=== PATIENT | male | born 1985 | race American Indian/Alaskan Native ===

== ENCOUNTER 2016-12-15 03:30 | Emergency (ER) | payer BC, OTHER ==
[2016-12-15 03:54] VITALS: BMI 21.2
[2016-12-15 03:56] VITALS: TEMP 98.5
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
[2016-12-15 05:51] VITALS: BP 152/86; PULSE 79; RESP 18; O2SAT 99
== END 2016-12-15 05:50 | disposition home or self-care (01) ==
LOC: ED 03:30
DX: R51 Headache (principal); I10 Essential (primary) hypertension; Z99.2 Dependence on renal dialysis

== ENCOUNTER 2017-04-23 03:26 | Observation (INO) | payer BC, OTHER ==
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
[2017-04-23] MEDS ORDERED: Albuterol-Ipratrop 3 mg / 0.5 (3 ml) UD IH STA (04:05)
[2017-04-23 04:30] LABS: HEMATOCRIT 35.7 % (42.0-52.0); MEAN CELL VOLUME 76.1 fl (80.0-105.0); MEAN CORPUSCULAR HEMOGLOBIN 25.2 pg (25.0-35.0); MEAN CORPUSCULAR HGB CONC 33.1 g/dl (31.0-37.0); PLATELET COUNT 179 10^3/uL (120.0-450.0); RED CELL DISTRIBUTION WIDTH 16.1 % (11.5-14.5); WHITE BLOOD COUNT 9.1 10^3/ul (4.5-11.0)
[2017-04-23 04:38] LABS: INR 1.12 (0.93-1.08); PARTIAL THROMBOPLASTIN TIME 34.1 Seconds (25.1-36.5)
[2017-04-23 04:49] LABS: TROPONIN I 0.01 ng/mL
[2017-04-23 04:54] LABS: ALB/GLOB RATIO 1.3 (1.1-1.8); POTASSIUM 4.9 mmol/L (3.6-5.0)
[2017-04-23 06:54] VITALS: BMI 21.8
--- NOTE | 2017-04-23 07:01 | CP.PCM.HP ---
<Erin Shukla - Last Filed: 04/23/17 06:53> History of Present Illness - History of Present Illness History of Present Illness: Erin Shukla DO PGY1 - Internal Medicine H&P CC: Tired, weak, blood tinged sputum HPI: 31 yo M with PMH of HTN and ESRD on HD ([facility]) for the past two years. Presents complaining of lethargy, malaise, shortness of breath, and blood tinged sputum. His symptoms started Saturday, with fatigue and malaise, after he returned home from work. On Saturday, he missed a session of HD, and his symptoms progressively worsened, to include cough productive of blood tinged sputum, fevers, and chills. He reports compliance with his medications. He reports one sick contact at work. He denies any chest pain, nausea, vomiting, diarrhea, constipation, headache, otalgia, otorrhea, rhinorrhea, facial pain/pressure. 12 point ROS was reviewed and was negative except as in HPI PMH: As above PSH: AVF left arm Soc: Prior smoker, 2-3 PYH; Denies alcohol or illicits FHx: HTN, ESRD on HD All: NKDA PMD: Dr. Cobb Desulphurizer Operator: Dr. Sixto Nolan Pharmacy: [facility] Present on Admission - Present on Admission Any Indicators Present on Admission: No Past Patient History - Past Social History Smoking Status: Never Smoked - CARDIAC Hx Cardiac Disorders: Yes Hx Hypertension: Yes - PULMONARY Hx Respiratory Disorders: No - NEUROLOGICAL Hx Neurological Disorder: No - HEENT Hx HEENT Problems: No - RENAL Hx Chronic Kidney Disease: Yes Hx Dialysis: Yes ([facility], [facility]) - ENDOCRINE/METABOLIC Hx Endocrine Disorders: No - HEMATOLOGICAL/ONCOLOGICAL Hx Blood Disorders: Yes Hx Anemia: Yes - INTEGUMENTARY Hx Dermatological Problems: No - MUSCULOSKELETAL/RHEUMATOLOGICAL Hx Musculoskeletal Disorders: No ([facility]) - GASTROINTESTINAL Hx Gastrointestinal Disorders: No - GENITOURINARY/GYNECOLOGICAL Hx Genitourinary Disorders: No - PSYCHIATRIC Hx Psychophysiologic Disorder: No - SURGICAL HISTORY Hx Arteriovenous Shunt: Yes (left arm) - ANESTHESIA Hx Anesthesia: Yes Meds Allergies/Adverse Reactions: Allergies Allergy/AdvReac Type Severity Reaction Status Date / Time No Known Allergies Allergy Verified 12/15/16 03:54 Physical Exam - Constitutional Appears: Non-toxic, No Acute Distress Additional comments: Lethargic, occasionally tripoding - Head Exam Head Exam: ATRAUMATIC, NORMOCEPHALIC - Eye Exam Eye Exam: EOMI, Normal appearance. absent: Scleral icterus - ENT Exam ENT Exam: Mucous Membranes Moist - Neck Exam Neck exam: Positive for: Normal Inspection. Negative for: Lymphadenopathy - Respiratory Exam Respiratory Exam: Rales (Diffuse, L>R), NORMAL BREATHING PATTERN. absent: Accessory Muscle Use, Rhonchi, Wheezes, Respiratory Distress - Cardiovascular Exam Cardiovascular Exam: Tachycardia, REGULAR RHYTHM, +S1, +S2 - GI/Abdominal Exam GI & Abdominal Exam: Normal Bowel Sounds, Soft. absent: Guarding, Organomegaly , Rebound, Rigid, Tenderness - Extremities Exam Extremities exam: Positive for: pedal edema (3-4+ b/l LE to knees). Negative for: calf tenderness - Neurological Exam Neurological exam: Alert, CN II-XII Intact, Oriented x3 Additional comments: Lethargic, easily arousable - Psychiatric Exam Psychiatric exam: Normal Affect, Normal Mood - Skin Skin Exam: Dry, Intact, Normal Color Results - Vital Signs Recent Vital Signs: Last Vital Signs Temp 98.1 F 04/23/17 03:41 Pulse 91 H 04/23/17 05:41 Resp 16 04/23/17 05:41 BP 144/94 H 04/23/17 05:41 Pulse Ox 95 04/23/17 05:41 - Labs Result Diagrams: 04/23/17 04:10 04/23/17 04:10 Assessment & Plan - Assessment and Plan (Free Text) Assessment: 31 yo M with PMH of HTN and ESRD on HD (MWF) presents complaining of dyspnea, fatigue, malaise, and blood tinged sputum Plan 1. Dyspnea - 2/2 fluid overloaded state 2/2 missed HD - Patient with rales on exam, elevated BNP, CXR with pulmonary vascular congestion, and lower extremity edema - Ordered Lasix 20mg IV once - Consulted nephro for urgent dialysis - HOB>30, O2 by NC to maintain SaO2>90% - Reportedly had echo done previously, which was normal 2. Lethargy - Likely 2/2 uremia - Urgent dialysis today - Neurocheck Q4 3. Blood tinged sputum - H/H stable, no witnessed episodes in ED - Likely 2/2 pulmonary edema - Continue to monitor, recheck CBC with daily labs 4. HTN - Patient takes unknown dose of metoprolol and Norvasc 10mg daily - Resume home norvasc - Start hydralazine 10mg IV Q4 PRN for SBP >170 and DBP >110 5. ESRD on HD M/W/F - Patient missed session on Saturday, now with Cr of 18 - Patient sees Dr. Nolan on outpatient basis; consulted him for urgent HD - Patient reportedly had outpatient workup for his renal failure, including biopsy GI/DVT Ppx Patient seen, discussed, and reviewed with attending <Carlos Mchugh - Last Filed: 04/23/17 20:26> Results - Vital Signs Recent Vital Signs: Last Vital Signs Temp 99.8 F H 04/23/17 17:49 Pulse 110 H 04/23/17 17:57 Resp 20 04/23/17 17:49 BP 142/90 04/23/17 17:49 Pulse Ox 82 L 04/23/17 17:49 - Labs Result Diagrams: 04/23/17 04:10 04/23/17 04:10 Labs: Laboratory Results - last 24 hr 04/23/17 16:15 Lactic Acid 1.2 Attending/Attestation - Attestation I have personally seen and examined this patient.: Yes I have fully participated in the care of the patient.: Yes I have reviewed all pertinent clinical information: Yes
--- NOTE | 2017-04-23 08:33 | RAD ---
HISTORY: sob/hemoptysis COMPARISON: No prior. FINDINGS: LUNGS: Bilateral extensive confluent opacity in the lower of the lung. Likely lower lobe but as there is no silhouetting of the heart border bilaterally. PLEURA: No significant pleural effusion identified, no pneumothorax apparent. CARDIOVASCULAR: There is mild congestive change. OSSEOUS STRUCTURES: No significant abnormalities. VISUALIZED UPPER ABDOMEN: Normal. OTHER FINDINGS: None. IMPRESSION: Bilateral lower lobe opacity. Possible bilateral pneumonia.
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
--- NOTE | 2017-04-23 20:00 | CARD ---
APPROVED REPORT EKG Measurement Heart [id number] [place] [id number] <Conclusion> Normal sinus rhythm Possible Left atrial enlargement Left ventricular hypertrophy Nonspecific ST and T wave abnormality Abnormal ECG
[2017-04-23] MEDS ORDERED: Metoprolol Succinate 50 mg XL Tab PO STA (23:14)
[2017-04-24] MEDS ORDERED: Pantoprazole 40 mg EC Tab PO SCH (06:00)
[2017-04-24] MEDS: Metoprolol Succinate 50 mg XL Tab PO SCH ×2 (07:13→10:23)
[2017-04-24] MEDS ORDERED: Multivitamin Vitamin B Complex (Nephro-Vite) Tab PO SCH (08:00)
--- NOTE | 2017-04-24 10:56 | RAD ---
HISTORY: r/o infiltrate COMPARISON: 04/23/2017 FINDINGS: LUNGS: There is a diffuse bilateral infiltrate. There is also vascular congestion. Infiltrate is slightly worse on the right side. Findings could represent pneumonia or CHF. PLEURA: No significant pleural effusion identified, no pneumothorax apparent. CARDIOVASCULAR: Normal. OSSEOUS STRUCTURES: No significant abnormalities. VISUALIZED UPPER ABDOMEN: Normal. OTHER FINDINGS: None. IMPRESSION: There is a diffuse bilateral infiltrate. There is also vascular congestion. Infiltrate is slightly worse on the right side. Findings could represent pneumonia or CHF.
[2017-04-24 10:57] LABS: BASO # 0.05 K/mm3 (0.0-2.0); BASO % 0.5 % (0.0-3.0); EOS # 0.6 (0.0-0.7); EOS % 6.3 % (1.5-5.0); GRAN # 6.88 (1.4-6.5); GRAN % 72.9 % (50.0-68.0); HEMATOCRIT 38.3 % (42.0-52.0); LYMPH # 1.3 (1.2-3.4); LYMPH % 14.1 % (22.0-35.0); MEAN CELL VOLUME 76.6 fl (80.0-105.0); MEAN CORPUSCULAR HEMOGLOBIN 24.4 pg (25.0-35.0); MEAN CORPUSCULAR HGB CONC 31.9 g/dl (31.0-37.0); MONO # 0.6 (0.1-0.6); MONO % 6.2 % (1.0-6.0); PLATELET COUNT 183 10^3/uL (120.0-450.0); RED CELL DISTRIBUTION WIDTH 16.1 % (11.5-14.5); WHITE BLOOD COUNT 9.4 10^3/ul (4.5-11.0)
[2017-04-24 12:01] LABS: ALB/GLOB RATIO 1.3 (1.1-1.8); BILIRUBIN,TOTAL 1.4 mg/dL (0.2-1.3); CALCIUM 8.8 mg/dL (8.4-10.5); MAGNESIUM 2.2 mg/dL (1.7-2.2); PHOSPHOROUS 6.6 mg/dL (2.5-4.5); TOTAL PROTEIN 6.3 g/dL (5.8-8.3)
[2017-04-24 12:36] LABS: POTASSIUM 5.2 mmol/L (3.6-5.0)
--- NOTE | 2017-04-24 13:45 | CP.PCM.DIS ---
<ArnoldoMickyn - Last Filed: 04/24/17 13:46> Provider - Provider Date of Admission: 04/23/17 05:19 Attending physician: Arnulfo Dior MD Primary care physician: Kunal Cobb JD, MD Time Spent in preparation of Discharge (in minutes): 45 Hospital Course - Lab Results Lab Results: Most Recent Lab Values WBC 9.4 10^3/ul (4.5-11.0) 04/24/17 10:50 RBC 5.00 10^6/uL (3.5-6.1) 04/24/17 10:50 Hgb 12.2 g/dL (14.0-18.0) L 04/24/17 10:50 Hct 38.3 % (42.0-52.0) L 04/24/17 10:50 MCV 76.6 fl (80.0-105.0) L 04/24/17 10:50 MCH 24.4 pg (25.0-35.0) L 04/24/17 10:50 MCHC 31.9 g/dl (31.0-37.0) 04/24/17 10:50 RDW 16.1 % (11.5-14.5) H 04/24/17 10:50 Plt Count 183 10^3/uL (120.0-450.0) 04/24/17 10:50 Gran % 72.9 % (50.0-68.0) H 04/24/17 10:50 Lymph % (Auto) 14.1 % (22.0-35.0) L 04/24/17 10:50 Runnels % (Auto) 6.2 % (1.0-6.0) H 04/24/17 10:50 Eos % (Auto) 6.3 % (1.5-5.0) H 04/24/17 10:50 Baso % (Auto) 0.5 % (0.0-3.0) 04/24/17 10:50 Gran # 6.88 (1.4-6.5) H 04/24/17 10:50 Lymph # 1.3 (1.2-3.4) 04/24/17 10:50 Runnels # 0.6 (0.1-0.6) 04/24/17 10:50 Eos # 0.6 (0.0-0.7) 04/24/17 10:50 Baso # 0.05 K/mm3 (0.0-2.0) 04/24/17 10:50 PT 12.2 SECONDS (9.4-12.5) 04/23/17 04:10 INR 1.12 (0.93-1.08) H 04/23/17 04:10 APTT 34.1 Seconds (25.1-36.5) 04/23/17 04:10 Sodium 138 mmol/L (132-148) 04/24/17 10:50 Potassium 5.2 mmol/L (3.6-5.0) H 04/24/17 10:50 Chloride 98 mmol/L (98-107) 04/24/17 10:50 Carbon Dioxide 28 mmol/L (21-33) 04/24/17 10:50 Anion Gap 17 (10-20) 04/24/17 10:50 BUN 54 mg/dL (7-21) H 04/24/17 10:50 Creatinine 13.3 mg/dl (0.8-1.5) H* D 04/24/17 10:50 Est GFR ( Amer) 5 04/24/17 10:50 Est GFR (Non-Af Amer) 4 04/24/17 10:50 Random Glucose 135 mg/dL (70-110) H 04/24/17 10:50 Lactic Acid 0.8 mmol/L (0.7-2.1) 04/24/17 10:50 Calcium 8.8 mg/dL (8.4-10.5) 04/24/17 10:50 Phosphorus 6.6 mg/dL (2.5-4.5) H 04/24/17 10:50 Magnesium 2.2 mg/dL (1.7-2.2) 04/24/17 10:50 Total Bilirubin 1.4 mg/dL (0.2-1.3) H 04/24/17 10:50 AST 17 U/L (17-59) 04/24/17 10:50 ALT 38 U/L (7-56) 04/24/17 10:50 Alkaline Phosphatase 52 U/L (38-126) 04/24/17 10:50 Lactate Dehydrogenase 378 U/L (333-699) 04/23/17 04:10 Total Creatine Kinase 113 U/L (35-230) 04/23/17 04:10 Troponin I 0.01 ng/mL 04/23/17 04:10 NT-Pro-B Natriuret Pep [id number] pg/mL (0-450) H 04/24/17 10:50 Total Protein 6.3 g/dL (5.8-8.3) 04/24/17 10:50 Albumin 3.5 g/dL (3.0-4.8) 04/24/17 10:50 Globulin 2.7 gm/dL 04/24/17 10:50 Albumin/Globulin Ratio 1.3 (1.1-1.8) 04/24/17 10:50 - Hospital Course Hospital Course: 31 yo M with PMH of HTN and ESRD on HD (MWF) for the past two years. Presents complaining of lethargy, malaise, shortness of breath, and blood tinged sputum. His symptoms started Saturday, with fatigue and malaise, after he returned home from work. On Saturday, he missed a session of HD, and his symptoms progressively worsened, to include cough productive of blood tinged sputum, fevers, and chills. He reports compliance with his medications. He reports one sick contact at work. While admitted the patient was seen by Nephrology. While admitted the patient had two session of HD to catch up with the missed session last week. The patient's blood pressure medications from home were confirmed by the pharmacy and restarted (Metoprolol 50mg Daily and Norvasc 10 Daily). The patient had a chest x ray done that was showed an infiltrate present. The patient was susbsequently discharged on PO Levaquin 500mg for 10 days. 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 Discharge Exam - Head Exam Head Exam: ATRAUMATIC, NORMOCEPHALIC - Eye Exam Eye Exam: EOMI, Normal appearance, PERRL Pupil Exam: NORMAL ACCOMODATION, PERRL. absent: Irregular - ENT Exam ENT Exam: Mucous Membranes Moist, Normal Oropharynx - Respiratory Exam Respiratory Exam: Clear to PA & Lateral, NORMAL BREATHING PATTERN, UNREMARKABLE. absent: Rhonchi, Wheezes - Cardiovascular Exam Cardiovascular Exam: REGULAR RHYTHM, +S1, +S2 - GI/Abdominal Exam GI & Abdominal Exam: Normal Bowel Sounds, Unremarkable. absent: Organomegaly - Extremities Exam Extremities exam: full ROM - Back Exam Back exam: NORMAL INSPECTION. absent: CVA tenderness (L), CVA tenderness (R), paraspinal tenderness - Neurological Exam Neurological exam: Alert, CN II-XII Intact, Oriented x3 - Psychiatric Exam Psychiatric exam: Normal Affect, Normal Mood - Skin Skin Exam: Dry, Intact, Normal Color Discharge Plan - Discharge Medications Prescriptions: Levofloxacin [Levaquin] 500 mg PO DAILY #10 tablet - Follow Up Plan Condition: STABLE Disposition: HOME/ ROUTINE Instructions: Heart Failure (DC), Hemodialysis (DC), Dialysis Diet (DC), Chronic Hypertension (DC) Additional Instructions: 1.Patient advised to f/u with PMD within one week of discharge. 2.Patient advised to adhere to HD schedule. 3.Patient advised to f/u with Nephrology within on week of discharge. 4. Patient advised to return to emergency department for any new or worsening symptoms. Referrals: Kunal Cobb JD, MD [Primary Care Provider] - <Arnulfo Dior - Last Filed: 04/30/17 18:40> Provider - Provider Date of Admission: 04/23/17 05:19 Attending physician: Arnulfo Dior MD Primary care physician: Kunal Cobb JD, MD Hospital Course - Lab Results Lab Results: Most Recent Lab Values WBC 9.4 10^3/ul (4.5-11.0) 04/24/17 10:50 RBC 5.00 10^6/uL (3.5-6.1) 04/24/17 10:50 Hgb 12.2 g/dL (14.0-18.0) L 04/24/17 10:50 Hct 38.3 % (42.0-52.0) L 04/24/17 10:50 MCV 76.6 fl (80.0-105.0) L 04/24/17 10:50 MCH 24.4 pg (25.0-35.0) L 04/24/17 10:50 MCHC 31.9 g/dl (31.0-37.0) 04/24/17 10:50 RDW 16.1 % (11.5-14.5) H 04/24/17 10:50 Plt Count 183 10^3/uL (120.0-450.0) 04/24/17 10:50 Gran % 72.9 % (50.0-68.0) H 04/24/17 10:50 Lymph % (Auto) 14.1 % (22.0-35.0) L 04/24/17 10:50 Runnels % (Auto) 6.2 % (1.0-6.0) H 04/24/17 10:50 Eos % (Auto) 6.3 % (1.5-5.0) H 04/24/17 10:50 Baso % (Auto) 0.5 % (0.0-3.0) 04/24/17 10:50 Gran # 6.88 (1.4-6.5) H 04/24/17 10:50 Lymph # 1.3 (1.2-3.4) 04/24/17 10:50 Runnels # 0.6 (0.1-0.6) 04/24/17 10:50 Eos # 0.6 (0.0-0.7) 04/24/17 10:50 Baso # 0.05 K/mm3 (0.0-2.0) 04/24/17 10:50 PT 12.2 SECONDS (9.4-12.5) 04/23/17 04:10 INR 1.12 (0.93-1.08) H 04/23/17 04:10 APTT 34.1 Seconds (25.1-36.5) 04/23/17 04:10 Sodium 138 mmol/L (132-148) 04/24/17 10:50 Potassium 5.2 mmol/L (3.6-5.0) H 04/24/17 10:50 Chloride 98 mmol/L (98-107) 04/24/17 10:50 Carbon Dioxide 28 mmol/L (21-33) 04/24/17 10:50 Anion Gap 17 (10-20) 04/24/17 10:50 BUN 54 mg/dL (7-21) H 04/24/17 10:50 Creatinine 13.3 mg/dl (0.8-1.5) H* D 04/24/17 10:50 Est GFR ( Amer) 5 04/24/17 10:50 Est GFR (Non-Af Amer) 4 04/24/17 10:50 Random Glucose 135 mg/dL (70-110) H 04/24/17 10:50 Lactic Acid 0.8 mmol/L (0.7-2.1) 04/24/17 10:50 Calcium 8.8 mg/dL (8.4-10.5) 04/24/17 10:50 Phosphorus 6.6 mg/dL (2.5-4.5) H 04/24/17 10:50 Magnesium 2.2 mg/dL (1.7-2.2) 04/24/17 10:50 Total Bilirubin 1.4 mg/dL (0.2-1.3) H 04/24/17 10:50 AST 17 U/L (17-59) 04/24/17 10:50 ALT 38 U/L (7-56) 04/24/17 10:50 Alkaline Phosphatase 52 U/L (38-126) 04/24/17 10:50 Lactate Dehydrogenase 378 U/L (333-699) 04/23/17 04:10 Total Creatine Kinase 113 U/L (35-230) 04/23/17 04:10 Troponin I 0.01 ng/mL 04/23/17 04:10 NT-Pro-B Natriuret Pep [id number] pg/mL (0-450) H 04/24/17 10:50 Total Protein 6.3 g/dL (5.8-8.3) 04/24/17 10:50 Albumin 3.5 g/dL (3.0-4.8) 04/24/17 10:50 Globulin 2.7 gm/dL 04/24/17 10:50 Albumin/Globulin Ratio 1.3 (1.1-1.8) 04/24/17 10:50 Attending/Attestation - Attestation I have personally seen and examined this patient.: Yes I have fully participated in the care of the patient.: Yes I have reviewed all pertinent clinical information, including history, physical exam and plan: Yes Notes (Text): I have seen and examined the patient at bedside. Agree with the above note with the following additions/ exceptions: Briefly this is 31 year old male with history pf HTN, ESRD on HD who was admitted for dyspnea and mild blood tinged sputum which he noticed today. Patient states that whenever he misses his HD session he gets the similar symptoms including frothy blood tinged sputum with dyspnea. Patient underwent HD yesterday and today. His dyspnea and cough has resolved. There was no more episodes of hemoptysis since admission. Patient did not have fever, chills, tachypnea, dyspnea, hypoxia, leukocytosis or accessory muscle use. He reports sick contacts at work. CXR prelim reading is suspicious of an infiltrate. Will send patient home on levaquin. Advised patient to follow up with Dr Cobb within 3-5 days. Counselling provided regarding compliance with hemodialysis. Dr Arnulfo Dior
[2017-04-24 17:42] VITALS: BP 154/105; PULSE 89; RESP 22; TEMP 99.1; O2SAT 96
== END 2017-04-24 17:46 | disposition home or self-care (01) ==
LOC: ED 03:26 → ERH 05:19 → 3RSO 07:12
PROVIDERS: ADMIT Internal Medicine; ATTEND Hospitalist
DX: I13.2 Hypertensive heart and chronic kidney disease with heart failure and with stage 5 chronic kidney disease, or end stage renal disease (principal); N18.6 End stage renal disease; I50.9 Heart failure, unspecified; Z99.2 Dependence on renal dialysis; R53.1 Weakness; R06.02 Shortness of breath; D64.9 Anemia, unspecified; N25.81 Secondary hyperparathyroidism of renal origin; Z87.891 Personal history of nicotine dependence
CPT/HCPCS: 36415; 71010; 80053; 82550; 83605; 83615; 83735; 83880; 84100; 84484; 85025; 85027; 85610; 85730; 90999; 93005; 94640; 96372; 96374; 96376; 99285; G0378; J1644; J1940

== ENCOUNTER 2018-03-08 17:49 | Emergency (ER) | payer MEDICARE, OTHER ==
[2018-03-08 18:34] VITALS: RESP 18; TEMP 98; O2SAT 100; BMI 21.2
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
[2018-03-08 19:45] LABS: BASO # 0.05 K/mm3 (0.0-2.0); BASO % 0.7 % (0.0-3.0); EOS # 0.4 (0.0-0.7); EOS % 5.7 % (1.5-5.0); GRAN # 5.28 (1.4-6.5); GRAN % 74.6 % (50.0-68.0); LYMPH # 1.1 (1.2-3.4); LYMPH % 15.7 % (22.0-35.0); MEAN CELL VOLUME 76.1 fl (80.0-105.0); MEAN CORPUSCULAR HEMOGLOBIN 24.3 pg (25.0-35.0); MONO # 0.2 (0.1-0.6); MONO % 3.3 % (1.0-6.0); PLATELET COUNT 172 10^3/uL (120.0-450.0); RBC 4.52 10^6/uL (3.5-6.1); RED CELL DISTRIBUTION WIDTH 17.9 % (11.5-14.5); WHITE BLOOD COUNT 7.1 10^3/ul (4.5-11.0)
[2018-03-08 19:50] LABS: ALB/GLOB RATIO 1.3 (1.1-1.8); ALBUMIN 4.1 g/dL (3.0-4.8); CALCIUM 9.7 mg/dL (8.4-10.5)
[2018-03-08 22:15] VITALS: PULSE 98
[2018-03-08 23:50] VITALS: BP 156/98
--- NOTE | 2018-03-09 17:01 | RAD ---
Date of service: 03/08/2018 HISTORY: cough COMPARISON: 04/24/2017 TECHNIQUE: PA and lateral chest x-ray FINDINGS: LUNGS: Diffuse opacity throughout the right hemithorax which may reflect early pneumonia or mild pulmonary edema. Follow-up advised. PLEURA: No significant pleural effusion identified. No pneumothorax apparent. CARDIOVASCULAR: Normal. OSSEOUS STRUCTURES: No significant abnormalities. VISUALIZED UPPER ABDOMEN: Normal. OTHER FINDINGS: None. IMPRESSION: Mild diffuse right-sided pulmonary opacity. Possible early pneumonia or asymmetric distribution of pulmonary edema. Follow-up advised.
== END 2018-03-08 22:46 | disposition home or self-care (01) ==
LOC: ED 17:49
DX: J40 Bronchitis, not specified as acute or chronic (principal); R04.2 Hemoptysis
CPT/HCPCS: 71046; 80053; 83735; 83880; 85025; 96374; 99284; J1940

== ENCOUNTER 2018-05-23 21:30 | Inpatient (IN) | payer MEDICARE, OTHER ==
[2018-05-23 21:30] VITALS: BMI 21.8
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
[2018-05-23 22:26] LABS: BASO # 0.03 K/mm3 (0.0-2.0); BASO % 0.4 % (0.0-3.0); EOS # 0.5 (0.0-0.7); EOS % 6.3 % (1.5-5.0); GRAN # 5.77 (1.4-6.5); GRAN % 72.2 % (50.0-68.0); HEMOGLOBIN 9.9 g/dL (14.0-18.0); LYMPH # 1.4 (1.2-3.4); LYMPH % 17.7 % (22.0-35.0); MEAN CELL VOLUME 78.3 fl (80.0-105.0); MEAN CORPUSCULAR HEMOGLOBIN 24.9 pg (25.0-35.0); MEAN CORPUSCULAR HGB CONC 31.8 g/dl (31.0-37.0); MEAN PLATELET VOLUME 10.4 fl (7.0-11.0); MONO # 0.3 (0.1-0.6); MONO % 3.4 % (1.0-6.0); RBC 3.97 10^6/uL (3.5-6.1); RED CELL DISTRIBUTION WIDTH 19.4 % (11.5-14.5)
[2018-05-23 22:36] LABS: ALB/GLOB RATIO 1.3 (1.1-1.8); ALBUMIN 4.2 g/dL (3.0-4.8); CALCIUM 10.3 mg/dL (8.4-10.5); INR 1.19; PARTIAL THROMBOPLASTIN TIME 34.2 Seconds (25.1-36.5); PROTHROMBIN TIME 13.6 SECONDS (9.4-12.5)
[2018-05-24] MEDS ORDERED: Azithromycin 500MG/NS 250ml 500 MG/250 ML BAG IVPB STA (01:09)
[2018-05-24] MEDS ORDERED: cefTRIAXone 1 gm 1 GM/100 ML BAG IVPB STA (01:09)
[2018-05-24 08:15] VITALS: RESP 20
[2018-05-24] MEDS: Metoprolol Succinate 50 mg XL Tab PO SCH (09:42)
[2018-05-24] MEDS ORDERED: Iodixanol 320 MG/ML 100 ML BOTTLE IV ONE (10:50)
--- NOTE | 2018-05-24 12:00 | CT ---
Date of service: 05/24/2018 PROCEDURE: CT Chest with contrast (Pulmonary Angiogram) HISTORY: R/O AV MALFORMATION COMPARISON: None available. TECHNIQUE: Axial computed tomography images were obtained of the chest in the pulmonary arterial phase of enhancement. Coronal and sagittal reformatted images were created and reviewed. Intravenous contrast dose: 95 mL Visipaque 320 Radiation dose: Total exam DLP = 288.67 mGy-cm. This CT exam was performed using one or more of the following dose reduction techniques: Automated exposure control, adjustment of the mA and/or kV according to patient size, and/or use of iterative reconstruction technique. FINDINGS: PULMONARY ARTERIES: Unremarkable. No pulmonary embolism. AORTA: No acute findings. No thoracic aortic aneurysm. No aortic atherosclerotic calcification or mural plaque present. LUNGS: Diffuse ground-glass attenuation bilaterally. Lingula atelectasis versus consolidation. No nodule, mass or pulmonary consolidation. PLEURAL SPACES: Unremarkable. No effusion or pneumothorax. HEART: Cardiomegaly. No significant pericardial effusion. LYMPH NODES: No lymphadenopathy. BONES, CHEST WALL: Unremarkable. No fracture or destructive lesion OTHER FINDINGS: Partially imaged left upper extremity vascular stent. IMPRESSION: Diffuse ground-glass attenuation bilaterally. This is nonspecific and may represent air trapping, pulmonary vascular congestion/edema, or infectious/inflammatory etiology including but not limited to PCP pneumonia. Clinical correlation is recommended. Cardiomegaly. No evidence of pulmonary embolism.
--- NOTE | 2018-05-24 12:39 | RAD ---
Date of service: 05/23/2018 HISTORY: hemoptysis COMPARISON: Chest radiograph dated 03/08/2018. TECHNIQUE: Chest PA and lateral FINDINGS: LUNGS: Pulmonary vascular congestion. No focal consolidation or pleural effusion. PLEURA: No significant pleural effusion identified. No pneumothorax apparent. CARDIOVASCULAR: No aortic atherosclerotic calcification present. Cardiomegaly. OSSEOUS STRUCTURES: No significant abnormalities. VISUALIZED UPPER ABDOMEN: Normal. OTHER FINDINGS: Left upper extremity vascular stent redemonstrated. IMPRESSION: Pulmonary vascular congestion. No focal consolidation or pleural effusion. Cardiomegaly.
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
--- NOTE | 2018-05-24 13:36 | CP.PCM.PN ---
Subjective - Date & Time of Evaluation Date of Evaluation: 05/24/18 Time of Evaluation: 13:36 - Subjective Subjective: DIALYSIS note seen on hd UF goal 4 kg as tolerated bp elevated 2k bath Objective - Vital Signs/Intake and Output Vital Signs (last 24 hours): Temp Pulse Resp BP Pulse Ox 98.1 F 95 H 20 146/109 H 94 L 05/24/18 08:14 05/24/18 10:00 05/24/18 08:14 05/24/18 09:42 05/24/18 08:14 - Medications Medications: Current Medications Amlodipine Besylate (Norvasc) 10 mg PO DAILY [facility] Last Admin: 05/24/18 09:42 Dose: 10 mg Clonidine HCl (Catapres) 0.1 mg PO Q4H PRN PRN Reason: accelerated hypertension Darbepoetin Delbert (Aranesp) 40 mcg IVP ONCE [facility] Metoprolol Succinate (Toprol Xl) 50 mg PO DAILY [facility] Last Admin: 05/24/18 09:42 Dose: 50 mg - Labs Labs: 05/23/18 22:21 05/23/18 22:21 PT 13.6 SECONDS (9.4-12.5) H 05/23/18 22:21 INR 1.19 05/23/18 22:21 APTT 34.2 Seconds (25.1-36.5) 05/23/18 22:21
[2018-05-24] MEDS ORDERED: Darbepoetin Alfa 40 mcg/ml Inj IVP SCH (13:45)
[2018-05-24] MEDS ORDERED: Oxymetazoline 0.05% Nasal Spray (30 ml) NS PRN (14:30)
--- NOTE | 2018-05-24 15:51 | CON ---
DATE: 05/24/2018 PULMONARY CONSULT NOTE REFERRING PHYSICIAN: Dr. Lexie Pizano. REASON FOR CONSULT: Hemoptysis. HISTORY OF PRESENT ILLNESS: This is a 32-year-old male with past medical history of end-stage renal disease on hemodialysis and hypertension. History of pneumonia, who came to the emergency room complaining of hemoptysis for 2 days. Patient does report being treated for pneumonia in February. Today, reports feeling better, no hemoptysis. No headache, rhinitis, cough, shortness of breath, chest pain, abdominal pain, nausea, vomiting, diarrhea, leg pain, or leg swelling reported. PAST MEDICAL HISTORY: As per history of present illness. FAMILY HISTORY: No significant cardiopulmonary disease reported. SOCIAL HISTORY: Patient reports smoking marijuana at times. No ETOH abuse. ALLERGIES: NO KNOWN DRUG ALLERGIES. MEDICATIONS: Norvasc 10 mg p.o. daily, clonidine 0.1 mg every 4 hours p.r.n., Aranesp 40 mcg IV push once, metoprolol succinate 50 mg p.o. daily. REVIEW OF SYSTEMS: No headache, rhinitis, hemoptysis, hematosis, cough, shortness of breath, chest pain, abdominal pain, nausea, vomiting, diarrhea, leg pain, or leg swelling reported. PHYSICAL EXAMINATION: GENERAL: No acute distress. VITAL SIGNS: Blood pressure 146/109, pulse 87, temperature 98.1, and oxygen saturation 94. HEENT: Moist mucous membranes. Mallampati score of 4. NECK: Supple. No JVD. LUNGS: Clear bilaterally. CARDIOVASCULAR: S1 and S2 audible. ABDOMEN: Soft and nontender. No distention. No organomegaly. EXTREMITIES: No bilateral lower extremity edema. NEUROLOGIC: Awake, alert, and verbal. Follows simple commands. LABORATORY DATA: Reviewed. WBC 8, hemoglobin 9.9, hematocrit 31.1 and platelets 312. PT 13.6, INR 1.19 and APTT 34.2. Sodium 140, potassium 4.9, chloride 96, carbon dioxide 27, anion gap 22, BUN 82, creatinine 16.7, GFR of 4, random glucose 127, calcium, magnesium 2.6, total bilirubin 2, AST 27, ALT 30, alkaline phosphatase 72, total protein 7.4, albumin 4.2, globulin 3.3 and albumin-globulin ratio 1.3. Chest x-ray pulmonary vascular congestion, no focal consolidation or pleural effusion. Chest CT showed diffuse ground glass attenuation bilaterally. IMPRESSION AND PLAN: End-stage renal disease on hemodialysis, hypertension and hemoptysis. We will start patient on inhaled bronchodilators as a most common cause for hemoptysis is bronchitis. We will add nasal saline spray every 2 hours. We will add Afrin 2 sprays as needed for nose bleed. We will do CT angiogram to rule out AV malformation or aneurysm. Clinically, it seems the patient has post nasal drip, which could be aspirating into his lungs. We will treat as acute bronchitis, pneumonitis. We will start patient on Rocephin 1 gram IV daily. We believe it could be blood aspiration related pneumonitis. Followup CT scan in a few months. We believe the patient would benefit from ENT consult for a panendoscopy. This patient was seen and examined with Dr. Liao. Discussed assessment and plan as described above. Thank you for this consult and we will follow with you. Kit Willett APN Jey Liao MD [facility]
[2018-05-24] MEDS: cefTRIAXone 1 gm 1 GM/100 ML BAG IVPB SCH (17:12)
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
[2018-05-24] MEDS: Albuterol-Ipratrop 3 mg / 0.5 (3 ml) UD IH SCH (20:11)
[2018-05-24] MEDS: Budesonide 0.5 mg/2 ml Inhal Susp UD IH SCH (20:11)
--- NOTE | 2018-05-24 23:01 | CARD ---
APPROVED REPORT Date of service: 05/23/2018 EKG Measurement Heart [id number] <Conclusion> Normal sinus rhythm Nonspecific ST and T wave abnormality Prolonged QT Abnormal ECG
[2018-05-25] MEDS: Albuterol-Ipratrop 3 mg / 0.5 (3 ml) UD IH SCH ×4 (00:17→20:31)
[2018-05-25] MEDS: Budesonide 0.5 mg/2 ml Inhal Susp UD IH SCH ×2 (07:49→20:31)
--- NOTE | 2018-05-25 08:32 | CP.PCM.CON ---
History of Present Illness - History of Present Illness History of Present Illness: Awake, alert, no distress, denies coughing, feels better, wanted to go home Reason for consultation: Cardiac evaluation of cardiomegaly, history of hypertension and ESRD on hemodialysis Brief history of present illness: A 32 year old male who came in to the ER due to blood tinged cough for the past 2 days [employer]. He was seen by PMD last week for same symptoms and was prescribed antibiotics. History of end stage renal disease on hemodialysis 3x a week. ([facility]). He skipped hemodialysis treatment last Saturday and hemodialysis treatment last Saturday was also cut short. Left AV shunt. Had hemodialysis yesterday. Denies coughing or shortness of breath now. Consult was called due to cardiomegaly on chest X-ray. Seen and examined by me and Dr. Phelps Review of Systems - Review of Systems All systems: reviewed and no additional remarkable complaints except Review of Systems: as per HPI Past Patient History - Infectious Disease Hx of Infectious Diseases: None - Past Social History Smoking Status: Never Smoked - CARDIAC Hx Cardiac Disorders: Yes Hx Hypertension: Yes - PULMONARY Hx Respiratory Disorders: Yes Hx Bronchitis: Yes Hx Pulmonary Edema: Yes Other/Comment: "fluid in lungs" - NEUROLOGICAL Hx Neurological Disorder: No - HEENT Hx HEENT Problems: No - RENAL Hx Chronic Kidney Disease: Yes Hx Dialysis: Yes ([facility], [facility]) - ENDOCRINE/METABOLIC Hx Endocrine Disorders: No - HEMATOLOGICAL/ONCOLOGICAL Hx Blood Disorders: Yes Hx Anemia: Yes - INTEGUMENTARY Hx Dermatological Problems: No - MUSCULOSKELETAL/RHEUMATOLOGICAL Hx Musculoskeletal Disorders: No ([facility]) - GASTROINTESTINAL Hx Gastrointestinal Disorders: No - GENITOURINARY/GYNECOLOGICAL Hx Genitourinary Disorders: No - PSYCHIATRIC Hx Psychophysiologic Disorder: No Hx Substance Use: No - SURGICAL HISTORY Hx Arteriovenous Shunt: Yes (left arm) - ANESTHESIA Hx Anesthesia: Yes Meds Allergies/Adverse Reactions: Allergies Allergy/AdvReac Type Severity Reaction Status Date / Time No Known Allergies Allergy Verified 05/23/18 21:38 - Medications Medications: Current Medications Albuterol/Ipratropium (Duoneb 3 Mg/0.5 Mg (3 Ml) Ud) 3 ml IH [id number] [facility] Last Admin: 05/25/18 07:49 Dose: 3 ml Amlodipine Besylate (Norvasc) 10 mg PO DAILY [facility] Last Admin: 05/24/18 09:42 Dose: 10 mg Budesonide (Pulmicort Respules) 0.5 mg IH [id number] [facility] Last Admin: 05/25/18 07:49 Dose: 0.5 mg Clonidine HCl (Catapres) 0.1 mg PO Q4H PRN PRN Reason: accelerated hypertension Last Admin: 05/24/18 21:54 Dose: 0.1 mg Darbepoetin Delbert (Aranesp) 40 mcg IVP ONCE [facility] Ceftriaxone Sodium (Rocephin 1 Gram Ivpb) 1 gm in 100 mls @ 100 mls/hr IVPB DAILY [facility]; Protocol Last Admin: 05/24/18 17:12 Dose: 100 mls/hr Metoprolol Succinate (Toprol Xl) 50 mg PO DAILY [facility] Last Admin: 05/24/18 09:42 Dose: 50 mg Oxymetazoline HCl (Afrin 0.05%) 0 ml NS Q12H PRN PRN Reason: Nasal congestion Last Admin: 05/24/18 21:39 Dose: 1 spray Sodium Chloride ([place] Nasal [place]) 0 ml NS Q2 [facility]ER Last Admin: 05/25/18 05:10 Dose: Not Given Physical Exam - Constitutional Appears: Non-toxic, No Acute Distress - Head Exam Head Exam: NORMAL INSPECTION, NORMOCEPHALIC - Eye Exam Eye Exam: Normal appearance Pupil Exam: NORMAL ACCOMODATION - ENT Exam ENT Exam: Mucous Membranes Moist, Normal Exam - Neck Exam Neck exam: Positive for: Full Rom, Normal Inspection - Respiratory Exam Respiratory Exam: Decreased Breath Sounds, NORMAL BREATHING PATTERN - Cardiovascular Exam Cardiovascular Exam: REGULAR RHYTHM, +S1, +S2 Additional comments: Telemetry NSR 70s - GI/Abdominal Exam GI & Abdominal Exam: Normal Bowel Sounds, Soft - Exam Additional comments: ESRD on hemodialysis 3x a week - Extremities Exam Additional comments: left AV shunt positive bruit/thrill - Neurological Exam Neurological exam: Alert, Oriented x3 - Psychiatric Exam Psychiatric exam: Normal Affect, Normal Mood - Skin Skin Exam: Dry, Normal Color, Warm Results - Vital Signs Recent Vital Signs: Last Vital Signs Temp 98.1 F 05/24/18 08:14 Pulse 82 05/25/18 06:00 Resp 20 05/24/18 08:14 BP 151/110 H 05/24/18 21:54 Pulse Ox 94 L 05/24/18 08:14 - Labs Result Diagrams: 05/23/18 22:21 05/23/18 22:21 Assessment & Plan - Assessment and Plan (Free Text) Assessment: A 32 year old male who came in to the ER due to blood tinged cough for the past 2 days [employer]. He was seen by PMD last week for same symptoms and was prescribed antibiotics. History of end stage renal disease on hemodialysis 3x a week. (MWF). He skipped hemodialysis treatment last Saturday and hemodialysis treatment last Saturday was also cut short.He has left AV shunt. Had hemodialysis yesterday. Denies coughing or shortness of breath now. Consult was called due to cardiomegaly on chest X-ray.[place] previous cardiac [place] [facility] EKG -normal sinus rhythm, nonspecific ST-T wave abnormality. Pulmonary vascular congestion on chest X ray. possible bronchitis, started on antibiotics. Pulmonary on consult. Renal on consult. Plan: Denies shortness of breath and coughing Echo to evaluate LV function Blood pressure controlled Heart rate controlled On Norvasc 10 mg daily,Clonidine 0.1 mg PRN, Toprol XL 50 mg daily TSH, lipid profile,HgbA1C Continue current treatment Continue current medications Renal on consult Pulmonary on consult Will follow up further recommendations during hospital course Plan and treatment discussed with Dr. Phelps Thank you Dr. Richards for the opportunity of taking care of Marcell Angelo - Date & Time Date: 05/25/18 Time: 06:20
[2018-05-25] MEDS: cefTRIAXone 1 gm 1 GM/100 ML BAG IVPB SCH (09:29)
[2018-05-25] MEDS: Metoprolol Succinate 50 mg XL Tab PO SCH (09:29)
[2018-05-25 13:05] LABS: BASO # 0.04 K/mm3 (0.0-2.0); BASO % 0.6 % (0.0-3.0); EOS # 0.4 (0.0-0.7); EOS % 6.6 % (1.5-5.0); GRAN # 4.27 (1.4-6.5); GRAN % 68.5 % (50.0-68.0); HEMOGLOBIN 8.8 g/dL (14.0-18.0); LYMPH % 16.3 % (22.0-35.0); MEAN CELL VOLUME 79.1 fl (80.0-105.0); MEAN CORPUSCULAR HEMOGLOBIN 24.6 pg (25.0-35.0); MEAN CORPUSCULAR HGB CONC 31.1 g/dl (31.0-37.0); MEAN PLATELET VOLUME 11.7 fl (7.0-11.0); MONO # 0.5 (0.1-0.6); RBC 3.58 10^6/uL (3.5-6.1); RED CELL DISTRIBUTION WIDTH 19.5 % (11.5-14.5); WHITE BLOOD COUNT 6.2 10^3/uL (4.5-11.0)
--- NOTE | 2018-05-25 13:07 | CP.PCM.PN ---
<Mike Laguerre - Last Filed: 05/25/18 13:01> Subjective - Date & Time of Evaluation Date of Evaluation: 05/25/18 Time of Evaluation: 08:45 - Subjective Subjective: Medicine Progress Note for Hospitalist Service, Dr. Susie Laguerre, DO PGY-1 Pt seen and examined at bedside. Denies any acute complaints. States last night he coughed up sputum with clots of blood present. States it has not happened since then. Denies fever or chills. Denies headache, chest pain, sob, n/v/d/c, abd pain, urinary complaints, or other symptoms. No acute events reported overnight by staff. Objective - Vital Signs/Intake and Output Vital Signs (last 24 hours): Temp Pulse Resp BP Pulse Ox 98 F 95 H 20 122/82 94 L 05/25/18 08:43 05/25/18 10:00 05/25/18 08:43 05/25/18 09:29 05/25/18 08:43 Intake and Output: 05/25/18 05/25/18 06:59 18:59 Intake Total 240 Balance 240 - Medications Medications: Current Medications Albuterol/Ipratropium (Duoneb 3 Mg/0.5 Mg (3 Ml) Ud) 3 ml IH [id number] [facility] Last Admin: 05/25/18 07:49 Dose: 3 ml Amlodipine Besylate (Norvasc) 10 mg PO DAILY [facility] Last Admin: 05/25/18 09:29 Dose: 10 mg Budesonide (Pulmicort Respules) 0.5 mg IH [id number] [facility] Last Admin: 05/25/18 07:49 Dose: 0.5 mg Clonidine HCl (Catapres) 0.1 mg PO Q4H PRN PRN Reason: accelerated hypertension Last Admin: 05/24/18 21:54 Dose: 0.1 mg Darbepoetin Delbert (Aranesp) 40 mcg IVP ONCE [facility] Ceftriaxone Sodium (Rocephin 1 Gram Ivpb) 1 gm in 100 mls @ 100 mls/hr IVPB DAILY [facility]; Protocol Last Admin: 05/25/18 09:29 Dose: 100 mls/hr Metoprolol Succinate (Toprol Xl) 50 mg PO DAILY [facility] Last Admin: 05/25/18 09:29 Dose: 50 mg Oxymetazoline HCl (Afrin 0.05%) 0 ml NS Q12H PRN PRN Reason: Nasal congestion Last Admin: 05/24/18 21:39 Dose: 1 spray Sodium Chloride ([place] Nasal [place]) 0 ml NS Q2 NADER Last Admin: 05/25/18 09:32 Dose: 2 sprays - Labs Labs: 05/23/18 22:21 05/23/18 22:21 PT 13.6 SECONDS (9.4-12.5) H 05/23/18 22:21 INR 1.19 05/23/18 22:21 APTT 34.2 Seconds (25.1-36.5) 05/23/18 22:21 - Constitutional Appears: Non-toxic, No Acute Distress - Head Exam Head Exam: ATRAUMATIC, NORMOCEPHALIC - Eye Exam Eye Exam: EOMI, Normal appearance, PERRL - ENT Exam ENT Exam: Mucous Membranes Moist - Neck Exam Neck Exam: Full ROM, Normal Inspection. absent: Tenderness - Respiratory Exam Respiratory Exam: Clear to Ausculation Bilateral, NORMAL BREATHING PATTERN. ab sent: Rales, Rhonchi, Wheezes - Cardiovascular Exam Cardiovascular Exam: REGULAR RHYTHM, +S1, +S2. absent: Gallop, Rubs, Murmur - GI/Abdominal Exam GI & Abdominal Exam: Soft, Normal Bowel Sounds. absent: Distended, Guarding, Tenderness, Organomegaly - Extremities Exam Extremities Exam: Full ROM, Normal Capillary Refill, Normal Inspection. absent: Pedal Edema, Tenderness - Neurological Exam Neurological Exam: Alert, Awake, CN II-XII Intact, Oriented x3 - Skin Skin Exam: Dry, Intact, Normal Color, Warm Assessment and Plan - Assessment and Plan (Free Text) Assessment: 32 year old male with a PMHx of hypertension induced ESRD on HD (MWF), HTN who presented to the ED with Hemoptysis. Plan: Hemoptysis -Possibly 2/2 to volume overload, r/o infectious cause -No fall or trauma, no blood thinner medications -Hx of blood tinged sputum in 03/2017 and 02/2018 associated with pulmonary edema/URI -CTA Chest PE Protocol 05/24: Diffuse ground-glass attenuation bilaterally. This is nonspecific and may represent air trapping, pulmonary vascular congestion/edema, or infectious/inflammatory etiology including but not limited to PCP pneumonia. Clinical correlation is recommended. Cardiomegaly. No evidence of pulmonary embolism. -CXR 05/24: Pulmonary vascular congestion. No focal consolidation or pleural effusion. Cardiomegaly. -F/U blood cx, flu swab, mycoplasma, legionella, strep pneumoniae, hiv, hep panel, sputum cx -Consult Pulmonary, Dr Liao, recs appreciated -Consult ID, Dr. Mann, recs appreciated -Duonebs q6h scheduled -Budesonide 0.5mg H q12h -C/w Rocephin 1g ivpb qd day #2 -Oxymetazoline 0.05% q12h prn for nasal congesion ESRD on HD -Normal HD on MWF however patient missed HD yesterday due to worsening of symptoms and deciding to come to ER -Consult Nephro, Dr Nolan, recs appreciated HTN -Continue home med Amlodipine 10mg po qd -Continue home med Metoprolol succinate 50mg po qd -Clonidine 0.1mg po q4h prn for HTN -Echo pending -F/u TSH, A1c, lipid panel Anemia of Renal Disease -Hgb on admission: 9.9, will continue to trend with labs -Darbepoetin 40mcg ivp as Rx'd by truss assembler Cardiomegaly -as seen on CT chest -Consult Cardio Dr Phelps, recs appreciated -f/u echo PPX -Renal diet -SCDs and AC not indicated Pt seen, examined with, and plan discussed with Dr. Richards, attending physician. Mike Laguerre DO PGY-1, [employer] Pager #[phone] <Roxanne Richards - Last Filed: 05/25/18 16:04> Objective - Vital Signs/Intake and Output Vital Signs (last 24 hours): Temp Pulse Resp BP Pulse Ox 98 F 89 20 122/82 94 L 05/25/18 08:43 05/25/18 14:00 05/25/18 08:43 05/25/18 09:29 05/25/18 08:43 Intake and Output: 05/25/18 05/25/18 06:59 18:59 Intake Total 240 Balance 240 - Medications Medications: Current Medications Albuterol/Ipratropium (Duoneb 3 Mg/0.5 Mg (3 Ml) Ud) 3 ml IH [id number] [facility] Last Admin: 05/25/18 13:54 Dose: 3 ml Amlodipine Besylate (Norvasc) 10 mg PO DAILY [facility] Last Admin: 05/25/18 09:29 Dose: 10 mg Budesonide (Pulmicort Respules) 0.5 mg IH [id number] [facility] Last Admin: 05/25/18 07:49 Dose: 0.5 mg Clonidine HCl (Catapres) 0.1 mg PO Q4H PRN PRN Reason: accelerated hypertension Last Admin: 05/24/18 21:54 Dose: 0.1 mg Darbepoetin Delbert (Aranesp) 40 mcg IVP ONCE [facility] Ceftriaxone Sodium (Rocephin 1 Gram Ivpb) 1 gm in 100 mls @ 100 mls/hr IVPB DAILY [facility]; Protocol Last Admin: 05/25/18 09:29 Dose: 100 mls/hr Metoprolol Succinate (Toprol Xl) 50 mg PO DAILY [facility] Last Admin: 05/25/18 09:29 Dose: 50 mg Oxymetazoline HCl (Afrin 0.05%) 0 ml NS Q12H PRN PRN Reason: Nasal congestion Last Admin: 05/24/18 21:39 Dose: 1 spray Sodium Chloride ([place] Nasal [place]) 0 ml NS Q2 NADER Last Admin: 05/25/18 09:32 Dose: 2 sprays - Labs Labs: 05/25/18 12:55 05/25/18 12:55 PT 13.6 SECONDS (9.4-12.5) H 05/23/18 22:21 INR 1.19 05/23/18 22:21 APTT 34.2 Seconds (25.1-36.5) 05/23/18 22:21 Attending/Attestation - Attestation I have personally seen and examined this patient.: Yes I have fully participated in the care of the patient.: Yes I have reviewed all pertinent clinical information, including history, physical exam and plan: Yes Notes (Text): 05/25/18 15:58 attending note; Patient seen and examined with resident. patient is alert and awake. complaining of occasional cough. Had one episode of mucous with blood yesterday. Currently denies any fevers, chills. Denies any abdominal pain, nausea, Vomiting. Patient is a 32 year old male with a PMHx of hypertension induced ESRD on HD (MWF), HTN who presents to our ED for cough with blood tinged sputum production. end-stage renal disease on dialysis; patient is noncompliance with dialysis. Got hemodialysis yesterday. Nephrology evaluation appreciated. next Dialysis is on Saturday. hemoptysis; resolving. most likely seconary to bronchitis. Chest x-ray is negative sputum. chest CT is negative for PE. Showed bilateral groundglass opacity. Started on IV Rocephin. Pulmonary evaluation appreciated. Continuing inhaled steroid/saline nasal spray. history of hypertension and EKG changes; cardiology evaluation requested. Echocardiogram ordered. Upon discharge patient will follow-up with PMD Dr. Cobb. Patient is advised to follow-up pulmonary with Dr. Liao as outpatient. might need ENT evaluation as outpatient if symptoms does not improve. The diagnosis, treatment option and follow-up plan discussed with patient in detail. Dietary compliance and hemodialysis compliance insisted in great detail. possible discharge home tomorrow after dialysis.
[2018-05-25 13:20] LABS: ALB/GLOB RATIO 1.2 (1.1-1.8); ALBUMIN 3.2 g/dL (3.0-4.8); CALCIUM 9.3 mg/dL (8.4-10.5)
[2018-05-25 16:51] VITALS: TEMP 97.6
--- NOTE | 2018-05-25 17:41 | CP.PCM.PN ---
Subjective - Date & Time of Evaluation Date of Evaluation: 05/25/18 Time of Evaluation: 16:30 - Subjective Subjective: Infectious Disease Follow Up: May 25, 2018 32 year old male with a PMHx of hypertension induced ESRD on HD (MWF), HTN who presents to our ED for cough with blood tinged sputum production. He stated he began having cough beginning 2 days ago which he attributes to being "overloaded due to drinking too many fluids". He stated occasionally with the cough he noticed blood tinged sputum - he stated total amount of blood in the last 2 days was 1/3 of a cup. He saw his PMD Dr Cobb last week and was prescribed amoxicillin which he has almost completed. He stated a similar symptoms occurred 2 months ago - he was given abx at that time and the symptoms resolved. He denies fevers, chills, GI issues, muscle aches, sick contacts, recent travel, chest pain. He was supposed to have HD yesterday morning but decided to skip HD because he wanted to be seen in the ED for his symptoms. Additionally, his HD th is past saturday was cut short due to infiltration. Chest X-ray shows pulmonary vascular congestion. Chest CT showing diffuse basilar groundglass appearance. No Pulmonary Embolism. Nonspecific findings. No new changes. Patient expressing that he wants to go home. Remains afebrile. Cultures negative at 24 hours. Saturations around 94% on room air. Objective - Vital Signs/Intake and Output Vital Signs (last 24 hours): Temp Pulse Resp BP Pulse Ox 97.6 F 88 20 129/84 97 05/25/18 16:51 05/25/18 16:51 05/25/18 16:51 05/25/18 16:51 05/25/18 16:51 Intake and Output: 05/25/18 05/25/18 06:59 18:59 Intake Total 240 Balance 240 - Medications Medications: Current Medications Albuterol/Ipratropium (Duoneb 3 Mg/0.5 Mg (3 Ml) Ud) 3 ml IH [id number] [facility] Last Admin: 05/25/18 13:54 Dose: 3 ml Amlodipine Besylate (Norvasc) 10 mg PO DAILY [facility] Last Admin: 05/25/18 09:29 Dose: 10 mg Budesonide (Pulmicort Respules) 0.5 mg IH [id number] [facility] Last Admin: 05/25/18 07:49 Dose: 0.5 mg Clonidine HCl (Catapres) 0.1 mg PO Q4H PRN PRN Reason: accelerated hypertension Last Admin: 05/24/18 21:54 Dose: 0.1 mg Darbepoetin Delbert (Aranesp) 40 mcg IVP ONCE [facility] Ceftriaxone Sodium (Rocephin 1 Gram Ivpb) 1 gm in 100 mls @ 100 mls/hr IVPB DAILY [facility]; Protocol Last Admin: 05/25/18 09:29 Dose: 100 mls/hr Metoprolol Succinate (Toprol Xl) 50 mg PO DAILY [facility] Last Admin: 05/25/18 09:29 Dose: 50 mg Oxymetazoline HCl (Afrin 0.05%) 0 ml NS Q12H PRN PRN Reason: Nasal congestion Last Admin: 05/24/18 21:39 Dose: 1 spray Sodium Chloride ([place] Nasal [place]) 0 ml NS Q2 [facility] Last Admin: 05/25/18 17:29 Dose: 2 sprays - Labs Labs: 05/25/18 12:55 05/25/18 12:55 PT 13.6 SECONDS (9.4-12.5) H 05/23/18 22:21 INR 1.19 05/23/18 22:21 APTT 34.2 Seconds (25.1-36.5) 05/23/18 22:21 - Constitutional Appears: Non-toxic, No Acute Distress, Chronically Ill - Head Exam Head Exam: ATRAUMATIC, NORMOCEPHALIC - Eye Exam Eye Exam: EOMI, PERRL Pupil Exam: NORMAL ACCOMODATION, PERRL - ENT Exam ENT Exam: Mucous Membranes Moist, Normal External Ear Exam, TM's Normal Bilaterally - Neck Exam Neck Exam: Full ROM, Normal Inspection - Respiratory Exam Respiratory Exam: Clear to Ausculation Bilateral, NORMAL BREATHING PATTERN. absent: Rales, Rhonchi, Wheezes - Cardiovascular Exam Cardiovascular Exam: REGULAR RHYTHM, RRR, +S1, +S2 - GI/Abdominal Exam GI & Abdominal Exam: Soft, Normal Bowel Sounds. absent: Distended, Tenderness - Extremities Exam Extremities Exam: Full ROM, Normal Inspection - Neurological Exam Neurological Exam: Alert, Awake, CN II-XII Intact, Oriented x3 - Psychiatric Exam Psychiatric exam: Normal Affect, Normal Mood - Skin Skin Exam: Intact, Normal Color Assessment and Plan - Assessment and Plan (Free Text) Assessment: 32 yo male with ESRD on HD induced by uncontrolled HTN presenting with blood tinged sputum. The patient still has elevated blood pressure. Chronic lung findings on imaging studies given the basilar ground glass appearance in the lungs. While his blood tinged sputum is more likely secondary to his uncontrolled HTN. Still have to rule out HIV, pneumonia, PE. The patient O2 saturation has never been less than 94% during this hospitalization on Room Air. For completeness sake, would obtain Quantiferon and a PPD, although I think TB is extremely unlikely in this patient. Would obtain Procalcitonin level as well. No leukocytosis. Afebrile. Would try to correct blood pressure but would leave that to Dr. Nolan as he is more familiar with the patient's "normal" values. Continue with Rocephin alone for now with potential switch to oral Omnicef on discharge. Supportive care. Thank you for allowing me to participate in the care of the patient, we will follow with you.
--- NOTE | 2018-05-25 22:13 | PN ---
DATE: 05/25/2018 REFERRING PHYSICIAN: Roxanne Richards MD SUBJECTIVE: Sitting up in a chair, feels much better. No more nasal, postnasal or hemoptysis. No nausea or diarrhea, no leg swelling. OBJECTIVE: GENERAL: No acute distress. VITAL SIGNS: Temperature is 98, heart rate 88, respiratory is 20, blood pressure 129/84, pulse of 97% room air. HEENT: Moist mucous membranes. No ulcer or thrush noted. NECK: Supple. No JVD. LUNGS: Have fair airflow with rhonchi. HEART: S1 and S2. ABDOMEN: Soft, nontender, no organomegaly. EXTREMITIES: No edema. NEUROLOGIC: Awake, alert, and follows simple. MEDICATION: He is on Afrin on p.r.n. basis, Aranesp 40 mcg weekly, clonidine 0.1 mg every 4 hours p.r.n., DuoNeb every 6 hours, Norvasc 10 mg daily, nasal saline 2 sprays every 2 hours, Pulmicort inhaled twice a day, Rocephin 1 g daily, and Toprol XL 50 mg daily. LABORATORY DATA: Hemoglobin 8.8, hematocrit 28.3, WBC 6.2, platelet is 299. INR 1.1. PTT 34. Sodium 138, potassium 5, chloride 99, bicarbonate 30, BUN 43, creatinine 10.2, glucose 90, calcium 9.3, AST 19, ALT 32, alk phos is 67. Albumin is 3.2. Procalcitonin is 0.39. Mycoplasma IgM is negative. Microbiology, blood culture, there is no growth. IMPRESSION AND PLAN: Pneumonitis, probably secondary to aspiration pneumonia, renal failure, hypertension. Clinically, I think he has platelet dysfunction secondary to renal failure and also been getting heparin with dialysis increasing risk of bleed, on top of that change with a dry nose, probably having epistaxis with a postnasal drip aspirated causing pneumonitis. So, we will continue antibiotics. Continue nasal saline every 2 hours p.r.n. May use p.r.n. petroleum jelly to nose for dryness of the nose for now. If hemoptysis reoccur, may need ear, nose and throat evaluation to do panendoscopy. Thank you and we will follow with you. Jey Liao MD [facility] # [phone]
--- NOTE | 2018-05-25 22:20 | CON ---
DATE: 05/25/2018 CARDIOLOGY CONSULTATION REASON FOR CONSULTATION AND FOLLOWUP: Cardiac evaluation, cardiomegaly. Admitted with hemoptysis; end-stage renal disease, on dialysis. BRIEF CLINICAL HISTORY: This is a 32-year-old male with past medical history significant for hypertension, uncontrolled that leads to end-stage renal disease. The patient started on dialysis after that for year, but and then switched over to hemodialysis, and the patient is on hemodialysis for more than 2-1/2 years, Saturday, Saturday, and Saturday. Yesterday admitted because of hemoptysis. Chest x-ray shows cardiomegaly, Cardiology consult was called. The patient denies any chest pain, short of breath and any palpitation. The patient has left AV shunt on the left arm and peritoneal dialysis catheter initially placed in the umbilical removed. This note is addition to dictated nurse practitioner. The patient denies any chest pain, shortness of breath any palpitation. RECOMMENDATION: We will get echo to assess LV function. Continue dialysis. Continue aggressive treatment for high blood pressure. We will get the lipid profile, TSH, hemoglobin A1C, and echo. The patient needs to be followed up for hemoptysis. Rule out pneumonia. The patient had a CT chest, there is no evidence of PE. We will follow with you. Thank you Dr. Richards for providing us the opportunity in taking care of the patient, Marcell Stephens. Jey Phelps MD
[2018-05-26] MEDS: Albuterol-Ipratrop 3 mg / 0.5 (3 ml) UD IH SCH ×4 (00:25→14:03)
--- NOTE | 2018-05-26 07:29 | CP.PCM.PN ---
Subjective - Date & Time of Evaluation Date of Evaluation: 05/26/18 Time of Evaluation: 06:30 - Subjective Subjective: OOB to chair, Awake, alert, no distress, feels better, wanted to go home Reason for consultation: Cardiac evaluation of cardiomegaly, history of hypertension and ESRD on hemodialysis Seen and examined by me and Dr. Phelps Objective - Vital Signs/Intake and Output Vital Signs (last 24 hours): Temp Pulse Resp BP Pulse Ox 97.6 F 93 H 20 129/84 97 05/25/18 16:51 05/26/18 06:00 05/25/18 16:51 05/25/18 16:51 05/25/18 16:51 Intake and Output: 05/26/18 05/26/18 06:59 18:59 Intake Total 300 Balance 300 - Medications Medications: Current Medications Albuterol/Ipratropium (Duoneb 3 Mg/0.5 Mg (3 Ml) Ud) 3 ml IH [id number] NADER Last Admin: 05/26/18 00:26 Dose: 3 ml Amlodipine Besylate (Norvasc) 10 mg PO DAILY NADER Last Admin: 05/25/18 09:29 Dose: 10 mg Budesonide (Pulmicort Respules) 0.5 mg IH [id number] NADER Last Admin: 05/25/18 20:31 Dose: 0.5 mg Clonidine HCl (Catapres) 0.1 mg PO Q4H PRN PRN Reason: accelerated hypertension Last Admin: 05/24/18 21:54 Dose: 0.1 mg Darbepoetin Delbert (Aranesp) 40 mcg IVP ONCE [facility] Ceftriaxone Sodium (Rocephin 1 Gram Ivpb) 1 gm in 100 mls @ 100 mls/hr IVPB DAILY NADER; Protocol Last Admin: 05/25/18 09:29 Dose: 100 mls/hr Metoprolol Succinate (Toprol Xl) 50 mg PO DAILY NADER Last Admin: 05/25/18 09:29 Dose: 50 mg Oxymetazoline HCl (Afrin 0.05%) 0 ml NS Q12H PRN PRN Reason: Nasal congestion Last Admin: 05/24/18 21:39 Dose: 1 spray Sodium Chloride ([place] Nasal [place]) 0 ml NS Q2 NADER Last Admin: 05/26/18 02:37 Dose: Not Given - Labs Labs: 05/25/18 12:55 05/25/18 12:55 PT 13.6 SECONDS (9.4-12.5) H 05/23/18 22:21 INR 1.19 05/23/18 22:21 APTT 34.2 Seconds (25.1-36.5) 05/23/18 22:21 - Constitutional Appears: Non-toxic, No Acute Distress - Head Exam Head Exam: NORMAL INSPECTION, NORMOCEPHALIC - Eye Exam Eye Exam: Normal appearance Pupil Exam: NORMAL ACCOMODATION - ENT Exam ENT Exam: Mucous Membranes Moist, Normal Exam - Respiratory Exam Respiratory Exam: Decreased Breath Sounds, Clear to Ausculation Bilateral, NORMAL BREATHING PATTERN - Cardiovascular Exam Cardiovascular Exam: +S1, +S2 - GI/Abdominal Exam GI & Abdominal Exam: Soft, Normal Bowel Sounds - Exam Additional comments: ESRD on hemodialysis - Extremities Exam Extremities Exam: Full ROM, Normal Capillary Refill Additional comments: left AV shunt positive bruit - Neurological Exam Neurological Exam: Alert, Awake, Oriented x3 - Psychiatric Exam Psychiatric exam: Normal Affect, Normal Mood - Skin Skin Exam: Dry, Normal Color, Warm Assessment and Plan - Assessment and Plan (Free Text) Assessment: A 32 year old male who came in to the ER due to blood tinged cough for the past 2 days [employer]. He was seen by PMD last week for same symptoms and was prescribed antibiotics. History of end stage renal disease on hemodialysis 3x a week. (MWF). He skipped hemodialysis treatment last Saturday and hemodialysis treatment last Saturday was also cut short.He has left AV shunt. Had hemodialysis yesterday. Denies coughing or shortness of breath now. Consult was called due to cardiomegaly on chest X-ray.No previous cardiac work up at [facility]. EKG -normal sinus rhythm, nonspecific ST-T wave abnormality. Pulmonary vascular congestion on chest X ray. Started on antibiotics. Pulmonary on consult. Renal on consul t.For Echo today. For hemodialysis. Plan: Feels okay,wanted to go home For hemodialysis today Denies shortness of breath and coughing Echo to evaluate LV function Blood pressure controlled Heart rate controlled Discontinue telemetry On Norvasc 10 mg daily,Clonidine 0.1 mg PRN, Toprol XL 50 mg daily Lab results pending Continue current treatment Continue current medications Renal on consult Pulmonary on consult Will follow up Plan and treatment discussed with Dr. Phelps
[2018-05-26 08:00] LABS: HEPATITIS B SURFACE AG Negative (NEGATIVE)
[2018-05-26 08:05] LABS: HEPATITIS A IGM NEGATIVE (NEGATIVE); HEPATITIS B CORE AB NEGATIVE (NEGATIVE)
[2018-05-26 08:12] LABS: BASO # 0.05 K/mm3 (0.0-2.0); BASO % 0.6 % (0.0-3.0); EOS # 0.5 (0.0-0.7); EOS % 5.9 % (1.5-5.0); GRAN # 6.8 (1.4-6.5); GRAN % 75.6 % (50.0-68.0); HEMOGLOBIN 9.7 g/dL (14.0-18.0); LYMPH # 1.2 (1.2-3.4); LYMPH % 13.7 % (22.0-35.0); MEAN CELL VOLUME 78.6 fl (80.0-105.0); MEAN CORPUSCULAR HEMOGLOBIN 24.7 pg (25.0-35.0); MEAN CORPUSCULAR HGB CONC 31.4 g/dl (31.0-37.0); MEAN PLATELET VOLUME 11.2 fl (7.0-11.0); MONO # 0.4 (0.1-0.6); MONO % 4.2 % (1.0-6.0); RBC 3.93 10^6/uL (3.5-6.1); RED CELL DISTRIBUTION WIDTH 19.6 % (11.5-14.5)
[2018-05-26 08:16] LABS: HEPATITIS C ANTIBODY NEGATIVE (NEGATIVE)
[2018-05-26] MEDS: Budesonide 0.5 mg/2 ml Inhal Susp UD IH SCH (08:24)
[2018-05-26 08:28] VITALS: O2SAT 96
[2018-05-26 08:34] LABS: ALB/GLOB RATIO 1.3 (1.1-1.8); ALBUMIN 4.2 g/dL (3.0-4.8); CALCIUM 10.1 mg/dL (8.4-10.5)
--- NOTE | 2018-05-26 09:15 | CP.PCM.PN ---
Subjective - Date & Time of Evaluation Date of Evaluation: 05/26/18 Time of Evaluation: 09:13 - Subjective Subjective: Shortness of breath Hemoptysis Hypertensive Chronic Kidney Disease (I12.0) End stage renal disease (N18.6) dependence on hemodialysis (Z99.2) (MWF) via AVF Anemia (D64.9), HTN (I12.0) Plan: HD today,next outpt tx on sat. Nephrovite 1 tab/day. NICK start renvela 2400 mg po tid w/ meals would consider avoiding clonidine given hx of noncompliance w/ meds - would recc start ARB - can trial losartan and agree w/ b-angel luis use. Glycemic control, Dialysis consistent diet f/u pulm Further work up/management as per primary team Dose meds/antibiotics (if needed) for ESRD status. Avoid fleets enema/magnesium based laxatives. S: seen and examined denies n/v Physical Examination: General Appearance: Comfortable, in no acute respiratory distress, co-operative . Vitals reviewed and noted as below Head; Atraumatic, normocephalic ENT: no ulcers no thrush. Tongue is midline. Oropharynx: no rash or ulcers. EYES: Pupils are equal, round and reactive to light accommodation. Eye muscles and extraocular movement intact. Sclera is anicteric. Neck; supple no lymphadenopathy, no thyromegaly or bruit Lungs: Normal respiratory rate/effort. Breath sounds bilateral Heart: Normal rate. s1s2 normal. No rub or gallop. Extremities: 1+ edema. No varicose veins Neurological: Patient is alert, awake and oriented to person, place and time. No focal deficit. Strength bilateral appropriate and equal Skin: Warm and dry. Normal turgor. No rash. Palpitation: Normal elasticity for age Abdomen: Abdomen is soft. Bowel sounds +. There is no abdominal tenderness, no guarding/rigidity or organomegaly Psych: normal insight and normal affect/mood MSK: no joint tenderness or swelling. Digits and nails normal, no deformity : kidney or bladder not palpable Access: AVF Objective - Vital Signs/Intake and Output Vital Signs (last 24 hours): Temp Pulse Resp BP Pulse Ox 97.6 F 91 H 20 144/96 H 96 05/26/18 08:27 05/26/18 08:27 05/26/18 08:27 05/26/18 08:27 05/26/18 08:27 Intake and Output: 05/26/18 05/26/18 06:59 18:59 Intake Total 300 Balance 300 - Medications Medications: Current Medications Albuterol/Ipratropium (Duoneb 3 Mg/0.5 Mg (3 Ml) Ud) 3 ml IH [id number] NADER Last Admin: 05/26/18 08:24 Dose: 3 ml Amlodipine Besylate (Norvasc) 10 mg PO DAILY NADER Last Admin: 05/25/18 09:29 Dose: 10 mg Budesonide (Pulmicort Respules) 0.5 mg IH [id number] NADER Last Admin: 05/26/18 08:24 Dose: 0.5 mg Clonidine HCl (Catapres) 0.1 mg PO Q4H PRN PRN Reason: accelerated hypertension Last Admin: 05/24/18 21:54 Dose: 0.1 mg Darbepoetin Delbert (Aranesp) 40 mcg IVP ONCE NADER Ceftriaxone Sodium (Rocephin 1 Gram Ivpb) 1 gm in 100 mls @ 100 mls/hr IVPB DAILY NADER; Protocol Last Admin: 05/25/18 09:29 Dose: 100 mls/hr Metoprolol Succinate (Toprol Xl) 50 mg PO DAILY [facility] Last Admin: 05/25/18 09:29 Dose: 50 mg Oxymetazoline HCl (Afrin 0.05%) 0 ml NS Q12H PRN PRN Reason: Nasal congestion Last Admin: 05/24/18 21:39 Dose: 1 spray Sodium Chloride ([place] Nasal [place]) 0 ml NS Q2 NADER Last Admin: 05/26/18 09:06 Dose: Not Given - Labs Labs: 05/26/18 08:00 05/26/18 08:00 PT 13.6 SECONDS (9.4-12.5) H 05/23/18 22:21 INR 1.19 05/23/18 22:21 APTT 34.2 Seconds (25.1-36.5) 05/23/18 22:21
[2018-05-26] MEDS: cefTRIAXone 1 gm 1 GM/100 ML BAG IVPB SCH (09:26)
--- NOTE | 2018-05-26 12:08 | PN ---
DATE: 05/26/2018 PULMONARY PROGRESS NOTE REFERRING PHYSICIAN: Dr. Richards. SUBJECTIVE: Patient is lying in bed, no acute distress. Scheduled for hemodialysis today. Reports no hemoptysis, no epistaxis. No headache, rhinitis, cough, shortness of breath, chest pain, abdominal pain, nausea, vomiting, diarrhea or leg pain reported. Reports some leg swelling. OBJECTIVE: VITAL SIGNS: Blood pressure 144/96, pulse 91, temperature 97.6, oxygen saturation 96. GENERAL: No acute distress. HEENT: Moist mucous membranes. NECK: Supple. No JVD. LUNGS: Few rhonchi bilaterally. CARDIOVASCULAR: S1 and S2 audible. ABDOMEN: Soft, nontender. No distention. No organomegaly. EXTREMITIES: +1 bilateral lower extremity edema. NEUROLOGICAL: Awake, alert, verbal, and follows commands. MEDICATIONS: Reviewed. DuoNeb 3 mL inhalation every 6 hours, Norvasc 10 mg daily, Pulmicort 0.5 mg every 12 hours, Rocephin 1 gram daily, clonidine 0.1 mg every 4 hours p.r.n., Aranesp 40 mcg IV push once, metoprolol succinate 50 mg daily, Afrin every 12 hours p.r.n., Renagel 2400 mg 3 times a day, [place] nasal spray every 2 hours. LABORATORY DATA: Reviewed. WBC 9, RBC 3.93, hemoglobin 9.7, hematocrit 30.9, platelet 316. Sodium 140, potassium , chloride 96, carbon dioxide 28, anion gap 18, BUN 52, creatinine 14, GFR 5, random glucose 99, calcium 10.1, phosphorus 8.2, magnesium 2.4, total bilirubin 1.3, AST 27, ALT 29, alkaline phosphatase, total protein 7.6, albumin 4.2, globulin 3.4, albumin-globulin ratio 1.3. Triglycerides 78, cholesterol 1.84, LDL cholesterol 64, HDL cholesterol 51, TSH 3.97. Blood cultures preliminary shows no growth after 48 hours. Echocardiogram report pending. IMPRESSION AND PLAN: Pneumonitis, probably secondary to aspiration pneumonia, renal failure, hypertension, post nasal drip aspiration causing pneumonitis. Continue antibiotic therapy for total of about 7 days. Continue nasal saline every 2 hours. We will need follow up CT scan in 3 months. If hemoptysis reoccurs, we need ENT evaluation for panendoscopy. This patient was seen and examined with Dr. Liao. Discussed assessment and plan as described above. Thank you for this consult. We will follow with you. Kit Willett APN Jey Liao MD [facility]
--- NOTE | 2018-05-26 14:31 | CARD ---
APPROVED REPORT Date of service: 05/26/2018 EXAM: Two-dimensional and M-mode echocardiogram with Doppler and color Doppler. INDICATION CARDIOMEGALY 2D DIMENSIONS Left Atrium (2D)5.0 (1.6-4.0cm)IVSd1.7 (0.7-1.1cm) LVDd6.6 (3.9-5.9cm)PWd1.5 (0.7-1.1cm) LVDs5.3 (2.5-4.0cm)FS (%) 19.9 % LVEF (%)39.6 (>50%) M-Mode DIMENSIONS Aortic Root2.60 (2.2-3.7cm)Aortic Cusp Exc.2.20 (1.5-2.0cm) Aortic Valve AoV Peak Gvmoazlz232.0cm/[place] GR.13mmHg Mitral Valve E/A ratio0.0 TDI E/Lateral E'0.0E/Medial E'0.0 Tricuspid Valve TR Peak [id number] [id number] Peak Gr.58mmHg [id number] LEFT VENTRICLE The Left Ventricle is mild to moderately dilated. There is mild to moderate concentric left ventricular hypertrophy. The systolic function is moderately impaired.EF-35-40% There is moderate global hypokinesis of the left ventricle. There is a flattened septum consistent with right ventricle volume and pressure overload. Transmitral Doppler flow pattern is Grade III-reversible restrictive diastolic dysfunction. No left ventricle thrombus noted on this study. There is no ventricular septal defect visualized. There is no left ventricular aneurysm. There is no mass noted in the left ventricle. RIGHT VENTRICLE The right ventricle is moderately dilated. There is normal right ventricular wall thickness. Systolic function is moderately reduced. ATRIA The left atrium is moderately dilated. The right atrium is moderately dilated. The interatrial septum is intact with no evidence for an atrial septal defect. AORTIC VALVE The aortic valve is thickened but opens well. No aortic regurgitation is present. There is no aortic valvular stenosis. There is no aortic valvular vegetation. MITRAL VALVE The mitral valve is thickened but opens well. Mitral regurgitation is mild. There is no mitral valve stenosis. There is no evidence of mitral valve prolapse. TRICUSPID VALVE The tricuspid valve leaflets are thickened , but open well. There is moderate to severe tricuspid regurgitation.RVSP-68 mmof Hg. There is moderate to severe pulmonary hypertension. There is no tricuspid valve stenosis. There is no tricuspid valve prolapse or vegetation. GREAT VESSELS The aortic root is normal in size. The ascending aorta is normal in size. The pulmonary artery is normal. The IVC is dilated. PERICARDIAL EFFUSION There is no pleural effusion. There is a trace pericardial effusion. <Conclusion> Four chamber Dilatation ,C/w CMP. EF-35-40% Mild MR Moderate to severe TR, RVSP-68 mmof hg. There is moderate to severe pulmonary hypertension. There is a trace pericardial effusion. The IVC is dilated.
[2018-05-26] MEDS: Metoprolol Succinate 50 mg XL Tab PO SCH (14:48)
[2018-05-26 14:49] VITALS: BP 152/111; PULSE 99
--- NOTE | 2018-05-26 14:50 | CP.PCM.PN ---
Subjective - Date & Time of Evaluation Date of Evaluation: 05/26/18 Time of Evaluation: 12:30 - Subjective Subjective: Infectious Disease Follow Up: May 26, 2018 32 year old male with a PMHx of hypertension induced ESRD on HD (MWF), HTN who presents to our ED for cough with blood tinged sputum production. He stated he began having cough beginning 2 days ago which he attributes to being "overloaded due to drinking too many fluids". He stated occasionally with the cough he noticed blood tinged sputum - he stated total amount of blood in the last 2 days was 1/3 of a cup. He saw his PMD Dr Cobb last week and was prescribed amoxicillin which he has almost completed. He stated a similar symptoms occurred 2 months ago - he was given abx at that time and the symptoms resolved. He denies fevers, chills, GI issues, muscle aches, sick contacts, recent travel, chest pain. He was supposed to have HD yesterday morning but decided to skip HD because he wanted to be seen in the ED for his symptoms. Additionally, his HD th is past saturday was cut short due to infiltration. Chest X-ray shows pulmonary vascular congestion. Chest CT showing diffuse basilar groundglass appearance. No Pulmonary Embolism. Nonspecific findings. No new changes. Patient expressing that he wants to go home. Remains afebrile. Cultures negative at 48 hours. Saturations around 96% on room air. Objective - Vital Signs/Intake and Output Vital Signs (last 24 hours): Temp Pulse Resp BP Pulse Ox 97.6 F 91 H 20 144/96 H 96 05/26/18 08:27 05/26/18 08:27 05/26/18 08:27 05/26/18 08:27 05/26/18 08:27 Intake and Output: 05/26/18 05/26/18 06:59 18:59 Intake Total 300 Balance 300 - Medications Medications: Current Medications Albuterol/Ipratropium (Duoneb 3 Mg/0.5 Mg (3 Ml) Ud) 3 ml IH [id number] [facility] Last Admin: 05/26/18 14:03 Dose: Not Given Amlodipine Besylate (Norvasc) 10 mg PO DAILY [facility] Last Admin: 05/25/18 09:29 Dose: 10 mg Budesonide (Pulmicort Respules) 0.5 mg IH [id number] [facility] Last Admin: 05/26/18 08:24 Dose: 0.5 mg Clonidine HCl (Catapres) 0.1 mg PO Q4H PRN PRN Reason: accelerated hypertension Last Admin: 05/24/18 21:54 Dose: 0.1 mg Darbepoetin Delbert (Aranesp) 40 mcg IVP ONCE [facility] Ceftriaxone Sodium (Rocephin 1 Gram Ivpb) 1 gm in 100 mls @ 100 mls/hr IVPB DAILY [facility]; Protocol Last Admin: 05/26/18 09:26 Dose: Not Given Metoprolol Succinate (Toprol Xl) 50 mg PO DAILY [facility] Last Admin: 05/25/18 09:29 Dose: 50 mg Oxymetazoline HCl (Afrin 0.05%) 0 ml NS Q12H PRN PRN Reason: Nasal congestion Last Admin: 05/24/18 21:39 Dose: 1 spray Sevelamer HCl (Renagel) 2,400 mg PO TID [facility] Sodium Chloride ([place] Nasal [place]) 0 ml NS Q2 NADER Last Admin: 05/26/18 14:17 Dose: Not Given - Labs Labs: 05/26/18 08:00 05/26/18 08:00 PT 13.6 SECONDS (9.4-12.5) H 05/23/18 22:21 INR 1.19 05/23/18 22:21 APTT 34.2 Seconds (25.1-36.5) 05/23/18 22:21 - Constitutional Appears: Non-toxic, No Acute Distress, Chronically Ill - Head Exam Head Exam: ATRAUMATIC, NORMOCEPHALIC - Eye Exam Eye Exam: EOMI, PERRL Pupil Exam: NORMAL ACCOMODATION, PERRL - ENT Exam ENT Exam: Mucous Membranes Moist, Normal External Ear Exam, TM's Normal B ilaterally - Neck Exam Neck Exam: Full ROM, Normal Inspection - Respiratory Exam Respiratory Exam: Clear to Ausculation Bilateral, NORMAL BREATHING PATTERN. absent: Rales, Rhonchi, Wheezes - Cardiovascular Exam Cardiovascular Exam: REGULAR RHYTHM, RRR, +S1, +S2 - GI/Abdominal Exam GI & Abdominal Exam: Soft, Normal Bowel Sounds. absent: Distended, Tenderness - Extremities Exam Extremities Exam: Full ROM, Normal Inspection - Neurological Exam Neurological Exam: Alert, Awake, CN II-XII Intact, Oriented x3 - Psychiatric Exam Psychiatric exam: Normal Affect, Normal Mood - Skin Skin Exam: Intact, Normal Color Assessment and Plan - Assessment and Plan (Free Text) Assessment: 32 yo male with ESRD on HD induced by uncontrolled HTN presenting with blood tinged sputum. The patient still has elevated blood pressure. Chronic lung findings on imaging studies given the basilar ground glass appearance in the lungs. While his blood tinged sputum is more likely secondary to his uncontrolled HTN. Still have to rule out HIV, pneumonia, PE. The patient O2 saturation has never been less than 94% during this hospitalization on Room Air. For completeness sake, would obtain Quantiferon and a PPD, although I think TB is extremely unlikely in this patient. Would obtain Procalcitonin level as well. No leukocytosis. Afebrile. Would try to correct blood pressure but would leave that to Dr. Nolan as he is more familiar with the patient's "normal" values. Continue with Rocephin alone for now with potential switch to oral Omnicef on discharge. Procalcitonin of 3.39. Could also consider use of Ancef with HD to administer medications due to patient non-compliance. Supportive care. Thank you for allowing me to participate in the care of the patient, we will follow with you.
--- NOTE | 2018-05-26 16:19 | CP.PCM.DIS ---
Provider - Provider Date of Admission: 05/24/18 01:10 Attending physician: Roxanne iRchards MD Primary care physician: Kunal Cobb JD, MD Consults: 05/24/18 01:10 Physician Consult Routine Comment: Consulting Provider: Antonio Mann Consulting Physician: Antonio Mann Reason for Consult: hx of pna 05/24/18 07:49 Physician Consult Routine Comment: Consulting Provider: Jey Liao Consulting Physician: Jey Liao Reason for Consult: HEMOPTYSIS 05/24/18 15:21 Cardiology Consult Routine Comment: Consulting Provider: Jey Phelps Consulting Physician: Jey Phelps Reason for Consult: cardiomegaly Time Spent in preparation of Discharge (in minutes): 45 Diagnosis - Discharge Diagnosis (1) ESRD (end stage renal disease) on dialysis Status: Chronic (2) Noncompliance with renal dialysis Status: Chronic (3) Hx of essential hypertension Status: Chronic (4) Anemia in chronic kidney disease, on chronic dialysis Status: Chronic (5) Cardiomegaly Status: Acute (6) Hemoptysis Status: Resolved Hospital Course - Lab Results Lab Results: Micro Results 05/23/18 22:53 Blood Blood Culture - Preliminary NO GROWTH AFTER 48 HOURS 05/23/18 22:21 Blood Blood Culture - Preliminary NO GROWTH AFTER 48 HOURS Most Recent Lab Values WBC 9.0 10^3/uL (4.5-11.0) D 05/26/18 08:00 RBC 3.93 10^6/uL (3.5-6.1) 05/26/18 08:00 Hgb 9.7 g/dL (14.0-18.0) L 05/26/18 08:00 Hct 30.9 % (42.0-52.0) L 05/26/18 08:00 MCV 78.6 fl (80.0-105.0) L 05/26/18 08:00 MCH 24.7 pg (25.0-35.0) L 05/26/18 08:00 MCHC 31.4 g/dl (31.0-37.0) 05/26/18 08:00 RDW 19.6 % (11.5-14.5) H 05/26/18 08:00 Plt Count 316 10^3/uL (120.0-450.0) 05/26/18 08:00 MPV 11.2 fl (7.0-11.0) H 05/26/18 08:00 Gran % 75.6 % (50.0-68.0) H 05/26/18 08:00 Lymph % (Auto) 13.7 % (22.0-35.0) L 05/26/18 08:00 [place] % (Auto) 4.2 % (1.0-6.0) 05/26/18 08:00 Eos % (Auto) 5.9 % (1.5-5.0) H 05/26/18 08:00 Baso % (Auto) 0.6 % (0.0-3.0) 05/26/18 08:00 Gran # 6.80 (1.4-6.5) H 05/26/18 08:00 Lymph # (Auto) 1.2 (1.2-3.4) 05/26/18 08:00 [place] # (Auto) 0.4 (0.1-0.6) 05/26/18 08:00 Eos # (Auto) 0.5 (0.0-0.7) 05/26/18 08:00 Baso # (Auto) 0.05 K/mm3 (0.0-2.0) 05/26/18 08:00 PT 13.6 SECONDS (9.4-12.5) H 05/23/18 22:21 INR 1.19 05/23/18 22:21 APTT 34.2 Seconds (25.1-36.5) 05/23/18 22:21 Sodium 140 mmol/L (132-148) 05/26/18 08:00 Potassium 4.8 mmol/L (3.6-5.0) 05/26/18 08:00 Chloride 97 mmol/L (98-107) L 05/26/18 08:00 Carbon Dioxide 29 mmol/L (21-33) 05/26/18 08:00 Anion Gap 18 (10-20) 05/26/18 08:00 BUN 52 mg/dL (7-21) H 05/26/18 08:00 Creatinine 14.0 mg/dl (0.8-1.5) H* D 05/26/18 08:00 Est GFR ( Amer) 5 05/26/18 08:00 Est GFR (Non-Af Amer) 4 05/26/18 08:00 Random Glucose 99 mg/dL (70-110) 05/26/18 08:00 Hemoglobin A1c 4.5 % (4.2-6.5) 05/26/18 08:00 Calcium 10.1 mg/dL (8.4-10.5) 05/26/18 08:00 Phosphorus 8.2 mg/dL (2.5-4.5) H 05/26/18 08:00 Magnesium 2.4 mg/dL (1.7-2.2) H 05/26/18 08:00 Total Bilirubin 1.3 mg/dL (0.2-1.3) 05/26/18 08:00 AST 27 U/L (17-59) 05/26/18 08:00 ALT 29 U/L (7-56) 05/26/18 08:00 Alkaline Phosphatase 68 U/L (38-126) 05/26/18 08:00 Total Protein 7.6 g/dL (5.8-8.3) 05/26/18 08:00 Albumin 4.2 g/dL (3.0-4.8) 05/26/18 08:00 Globulin 3.4 gm/dL 05/26/18 08:00 Albumin/Globulin Ratio 1.3 (1.1-1.8) 05/26/18 08:00 Triglycerides 78 mg/dL (35-160) 05/26/18 08:00 Cholesterol 144 mg/dL (130-200) 05/26/18 08:00 LDL Cholesterol Direct 64 mg/dL (0-129) 05/26/18 08:00 HDL Cholesterol 51 mg/dL (29-60) 05/26/18 08:00 Procalcitonin 3.39 NG/ML (0.19-0.49) H 05/25/18 05:30 TSH 3rd Generation 3.97 mIU/mL (0.46-4.68) 05/26/18 08:00 Hepatitis A IgM Ab Negative (NEGATIVE) 05/25/18 05:30 Hep Bs Antigen Negative (NEGATIVE) 05/25/18 05:30 Hep B Core IgM Ab Negative (NEGATIVE) 05/25/18 05:30 Hepatitis C Antibody Negative (NEGATIVE) 05/25/18 05:30 HIV 1&2 Antibody Screen Negative (NEGATIVE) 05/25/18 05:30 Mycoplasma pneumon IgM Negative (NEGATIVE) 05/25/18 05:30 Blood Type A POSITIVE 05/23/18 22:29 Blood Type Confirm A POSITIVE 05/23/18 22:53 Antibody Screen Negative 05/23/18 22:29 BBK History Checked No verified bt 05/23/18 22:29 - Hospital Course Hospital Course: HPI at time of admission: "32 year old male with a PMHx of hypertension induced ESRD on HD (MWF), HTN who presents to our ED for cough with blood tinged sputum production. He stated he began having cough beginning 2 days ago which he attributes to being "overloaded due to drinking too many fluids". He stated occasionally with the cough he noticed blood tinged sputum - he stated total amount of blood in the last 2 days was 1/3 of a cup. He saw his PMD Dr Cobb last week and was prescribed amoxicillin which he has almost completed. He stated a similar symptoms occurred 2 months ago - he was given abx at that time and the symptoms resolved. He denies fevers, chills, GI issues, muscle aches, sick contacts, recent travel, chest pain. He was supposed to have HD yesterday morning but decided to skip HD because he wanted to be seen in the ED for his symptoms. Additionally, his HD this past saturday was cut short due to infiltration." Hospital Course Pertinent imaging: CTA chest 05/24: Diffuse ground-glass attenuation bilaterally. This is nonspecific and may represent air trapping, pulmonary vascular congestion/edema, or infectious/inflammatory etiology including but not limited to PCP pneumonia. Clinical correlation is recommended. Cardiomegaly. No evidence of pulmonary embolism. CXR 05/24: Pulmonary vascular congestion. No focal consolidation or pleural effusion. Cardiomegaly. Echo was done on 05/26/18, pt to f/u for results with Dr. Phelps (Cardiology). Pt also scheduled for cath procedure outpatient on 05/29/[address] Phelps. Pt was admitted for work-up of Hemoptysis, likely 2/2 fluid overload with missing dialysis treatment. Work-up was negative for infectious cause of Hemoptysis. ID (Dr. Mann) and Pulm (Dr. Liao) were consulted for further management. Pt's primary chief of harbor patrol Dr. Nolan was also consulted for management of hemodialysis while inpatient. Pt was discharged to home in stable condition on 05/26/18. Instructed to f/u with PMD Dr. Cobb within 3-5 days of hospital d/c. Also instructed to have repeat CT chest done in 3 mos. Instructed to f/u for next dialysis appt on 05/28/17. Instructed to f/u with Dr. Nolan within 3-5 days of d/c. Instructed to f/u with Dr. Phelps and for outpatient cardiac cath as noted above. Instructed to f/u with ENT outpatient within 1 week of d/c if hemoptysis persists. Instructed to remain compliant with dialysis treatments as scheduled. Given scripts for Amlodipine, Toprol XL, Oxymetazoline, Sevalamer, and Losartan prior to d/c. For further details of hospital admission, please refer to hospital EMR. Discharge Exam - Head Exam Head Exam: ATRAUMATIC, NORMOCEPHALIC - Eye Exam Eye Exam: EOMI, Normal appearance, PERRL - ENT Exam ENT Exam: Mucous Membranes Moist - Respiratory Exam Respiratory Exam: Clear to PA & Lateral, NORMAL BREATHING PATTERN, UNREMARKABLE. absent: Rales, Rhonchi, Wheezes - Cardiovascular Exam Cardiovascular Exam: REGULAR RHYTHM, +S1, +S2. absent: Gallop, Rubs, Systolic Murmur - GI/Abdominal Exam GI & Abdominal Exam: Normal Bowel Sounds, Soft, Unremarkable. absent: Distended, Organomegaly - Extremities Exam Extremities exam: full ROM, normal capillary refill, normal inspection, pedal pulses present - Neurological Exam Neurological exam: Alert, CN II-XII Intact, Normal Gait, Oriented x3, Reflexes Normal - Psychiatric Exam Psychiatric exam: Normal Affect, Normal Mood - Skin Skin Exam: Dry, Intact, Normal Color, Warm Discharge Plan - Discharge Medications Prescriptions: amLODIPine [Norvasc] 10 mg PO DAILY #14 tab Losartan [Cozaar] 50 mg PO DAILY #30 tab Metoprolol Succinate XL [Toprol XL] 50 mg PO DAILY #14 tab Oxymetazoline 0.05% [Afrin 0.05%] 1 spray NS Q12H PRN #1 bottle PRN Reason: Nasal Congestion Sevelamer [Renagel] 2,400 mg PO TID #42 tab - Follow Up Plan Condition: GOOD Disposition: HOME/ ROUTINE Instructions: Dialysis Diet , Hemodialysis (DC), Coughing up Blood Additional Instructions: Please follow up with your primary medical doctor, Dr. Cobb, within 3-5 days of discharge. You will need a repeat CT of your chest in 3 months. Please follow up with your chief of harbor patrol, Dr. Nolan, within 3-5 days of discharge. As per your chief of harbor patrol, Dr Nolan, your next scheduled hemodialysis session will be this coming May. Please follow up with pulmonary Dr. Liao within one week of discharge. Please follow up with Dr. Phelps (Sales Account Specialist) within one week of discharge. YOU WILL NEED A CARDIAC CATH IN 2 WEEKS SaturdayJUNE 05 at 7:30am. CARDIOLOGY WILL CALL YOU WITH THE APPOINTMENT. Recommend to follow up with ENT (Ear, nose and throat) doctor within 1 week of discharge for further evaluation of blood in sputum if this continues. DO NOT SKIP DIALYSIS. THIS WILL MAKE YOU SHORT OF BREATH AND HAVE ELEVATED BLOOD PRESSURE. Continue all home medications as prescribed. You will be given prescriptions for the following medications. Take as prescribed. Can obtain refills for home meds from your primary care doctor within 3-5 days after discharge. 1. Amlodipine 10 mg orally once a day. 2. Metoprolol Succinate XL 50 mg orally once a day. 3. Oxymetazoline 0.05% spray bottle 1 spray every 12 hours as needed for nasal congestion. 4. Sevalamer (Renagel) 2400 mg orally three times daily. 5. Losartan 50mg orally once daily If your symptoms return, please go to the nearest emergency department. Referrals: Jey Phelps MD [Staff Provider] - Kunal Cobb JD, MD [Primary Care Provider] - Sixto Nolan MD [Staff Provider] - Ramin Abernathy DO [Staff Provider] - Jey Liao MD [Staff Provider] -
--- NOTE | 2018-05-26 18:43 | PN ---
DATE: 05/26/2018 REASON FOR CONSULTATION: Followup; cardiac evaluation; cardiomegaly; history of hypertension; end-stage renal disease, on dialysis. The patient denies any chest pain, shortness of breath or any palpitation. Going for echo today. This note is in addition to dictated by nurse practitioner, Beverley Eugene. Currently, the patient is on dialysis on Saturday, Saturday and Saturday. He will get echo to assess the LV function. Further recommendation will be made after the echo. We will follow with you. TSH is 3.97, triglycerides 78, cholesterol 144, LDL 64, HDL 51. Hemoglobin A1c 4.5. Thank you, Dr. Morales, for providing us the opportunity in taking care of the patient, Marcell Stephens. We will follow with you. Jey Phelps MD
--- NOTE | 2018-05-28 08:13 | PN ---
DATE: 05/26/2018 This is an addendum to the initial progress note dictated this morning. Patient had echo done that showed four chambered dilatation consistent with cardiomyopathy. Ejection fraction 35% to 40%. Mild mitral regurgitation. Moderate to severe tricuspid regurgitation, RV systolic pressure 58 mmHg. There is moderate to severe pulmonary hypertension. In view of above discussion done with the patient, at a later time, patient agreed to have a cardiac catheterization, is scheduled on 06/05/2017 at 7:30. Patient is going to be discharged and is scheduled as outpatient for cardiac catheterization to see any coronary artery disease for cardiomyopathy. Patient denies any history of alcohol abuse. Thank you Dr. Richards to provide us opportunity in taking care of the patient, Marcell Stephens. Jey Phelps MD
== END 2018-05-26 15:54 | disposition home or self-care (01) | DRG 202 ==
LOC: ED 21:30 → ERH 05-24 01:10 → 3RNO 05-24 03:03
PROVIDERS: ADMIT Internal Medicine; ATTEND Internal Medicine
PROC: 5A1D70Z Performance of Urinary Filtration, Intermittent, Less than 6 Hours Per Day (ICD-10-PCS; principal; 2018-05-24)
PROC: 5A1D70Z Performance of Urinary Filtration, Intermittent, Less than 6 Hours Per Day (ICD-10-PCS; 2018-05-26)
DX: J20.9 Acute bronchitis, unspecified (principal); N18.6 End stage renal disease; J69.0 Pneumonitis due to inhalation of food and vomit; R04.2 Hemoptysis; I12.0 Hypertensive chronic kidney disease with stage 5 chronic kidney disease or end stage renal disease; I42.9 Cardiomyopathy, unspecified; E87.70 Fluid overload, unspecified; D63.1 Anemia in chronic kidney disease; F12.90 Cannabis use, unspecified, uncomplicated; I08.1 Rheumatic disorders of both mitral and tricuspid valves; I27.20 Pulmonary hypertension, unspecified; Z91.15 Patient's noncompliance with renal dialysis; Z99.2 Dependence on renal dialysis; Z87.891 Personal history of nicotine dependence

== ENCOUNTER 2018-06-05 06:38 | Day surgery (SDC) | payer MEDICARE ==
--- NOTE | 2018-06-03 01:14 | HP ---
DATE OF EXAM: 06/02/2018 REASON FOR ADMISSION: Left heart cath, possible angioplasty. BRIEF CLINICAL HISTORY: This is a 32-year-old male with past medical history significant for hypertension, uncontrolled leads to end-stage renal disease, started on dialysis four years ago, initially was started as a peritoneal dialysis, then later on switched to hemodialysis because of infection of the abdomen. Since two and a half years, the patient is on dialysis Saturday, Saturday, and Saturday, who admitted on 05/24/2018 with hemoptysis. Chest x-ray shows cardiomegaly, so Cardiology consult was called and the patient underwent echocardiography that shows significantly decreased LV function. Ejection fraction reported 35-40% mild MR, cacpinbs-vr-xczjyh tricuspid regurgitation, RV systolic pressure of 68, aeparhch-su-vmcquh pulmonary hypertension, trace pericardial effusion, so the patient is scheduled for elective cardiac catheterization. At that time, the patient was told to have a cardiac catheterization, but the patient wanted to go home and come back as an outpatient, so the patient is scheduled for cardiac catheterization on 06/05/2018 at 7:30. PAST MEDICAL HISTORY: Significant for as mentioned hypertension that leads to the end-stage renal disease, very noncompliance. Initially, the patient was on hemodialysis, but infection of the abdomen lead to switch over to hemodialysis for two and a half years. Surgical procedure; past surgical history is significant for peritoneal dialysis catheter was placed and then replaced and then later on the patient had AV fistula in left arm for dialysis catheter. History of hypertension many years ago noncompliance. CURRENT MEDICATIONS: The patient is on amlodipine 10 mg daily, vitamin B complex, Toprol-XL 50 mg daily, losartan 50 mg daily, being followed by Dr. Nolan. ALLERGIES: NO KNOWN DRUG ALLERGIES. RECENT CARDIAC WORKUP: As follows; the patient had echocardiography 05/26/2018, that shows four-chamber dilated cardiomyopathy, ejection fraction of 35-40%, mild mitral regurgitation, tgdcpezl-je-nfldoh tricuspid regurgitation, RV systolic pressure of 68, pzgtmyvi-fe-euclxt pulmonary hypertension with trace pericardial effusion. REVIEW OF SYSTEMS: As per HPI. PHYSICAL EXAMINATION: As follows: VITAL SIGNS: Height of the patient is 6 feet 2 inches, weight of the patient 171 pounds, body mass index 25 kg/m2. Rest of the vitals; temperature afebrile, heart rate 99, blood pressure 152/100. HEENT: PERRLA. Extraocular muscles are intact. NECK: Supple. No carotid bruit or thyromegaly. CHEST: Clear to auscultation. HEART: S1 and S2 regular. ABDOMEN: Soft. EXTREMITIES: Clubbing and cyanosis negative. LABORATORY DATA: Blood workup on 05/26/2018, shows WBC 9, hemoglobin 9.7, hematocrit 30.9, platelet count 316. Chemistry shows sodium 140, potassium 4.9, chloride 96, carbon dioxide anion gap of 18, BUN 52, creatinine 14 as of 05/26/2018. TSH 3.97. Total cholesterol 144, LDL 64, HDL 51, and triglycerides 74. Hemoglobin A1c 4.5. EKG on 05/23/2018 shows normal sinus, nonspecific ST-T changes. IMPRESSION: A 32-year-old male with past medical history significant for hypertension leading to end-stage renal disease, end-organ damage on peritoneal dialysis 3 years ago and then he got infection to the belly, so the patient switched over to hemodialysis Saturday, Saturday, and Saturday on left shunt AV fistula, who admitted here with hemoptysis, coughing some blood, possibly secondary to early pneumonia, but x-ray shows cardiomegaly, so an echocardiogram was done, it showed significantly decreased left ventricular function. Given the patient's age, young man, and cardiomegaly etiology, the patient is scheduled for elective cardiac cath, possible angioplasty on dated 06/05/2018 at 7:30. We will do left heart catheterization and depending upon right heart cath etiology for the pulmonary hypertension as well as cardiomyopathy. Further recommendation depending upon the cardiac catheterization finding. Risks, benefits, and alternatives were discussed with the patient, the patient agreed. We will proceed for cardiac catheterization. We will load him with aspirin, Plavix and the patient agreed for cardiac cath and will proceed for cardiac catheterization. Thank you Dr. Richards for providing us the opportunity in taking care of the patient, Angelo Faith. Further recommendation after cardiac catheterization. Jey Phelps MD cc: Roxanne Richards MD [facility] # [phone]
[2018-06-05 07:44] LABS: BASO # 0.03 K/mm3 (0.0-2.0); BASO % 0.4 % (0.0-3.0); EOS # 0.7 (0.0-0.7); EOS % 8.9 % (1.5-5.0); GRAN # 5.68 (1.4-6.5); GRAN % 69.6 % (50.0-68.0); HEMOGLOBIN 10.6 g/dL (14.0-18.0); LYMPH # 1.2 (1.2-3.4); LYMPH % 14.9 % (22.0-35.0); MEAN CELL VOLUME 80.2 fl (80.0-105.0); MEAN CORPUSCULAR HEMOGLOBIN 24.4 pg (25.0-35.0); MEAN CORPUSCULAR HGB CONC 30.4 g/dl (31.0-37.0); MONO # 0.5 (0.1-0.6); MONO % 6.2 % (1.0-6.0); PLATELET COUNT 255 10^3/uL (120.0-450.0); RBC 4.35 10^6/uL (3.5-6.1); RED CELL DISTRIBUTION WIDTH 18.4 % (11.5-14.5); WHITE BLOOD COUNT 8.2 10^3/uL (4.5-11.0)
[2018-06-05 07:52] LABS: INR 1.06; PARTIAL THROMBOPLASTIN TIME 33.5 Seconds (25.1-36.5); PROTHROMBIN TIME 12.2 SECONDS (9.4-12.5)
[2018-06-05] MEDS ORDERED: Lidocaine 2% Inj (20ml) ONE (09:48)
[2018-06-05] MEDS ORDERED: Iodixanol 320 MG/ML 200 ML BOTTLE IV ONE (09:48)
[2018-06-05] MEDS ORDERED: Iohexol 350mgl/ml 50 ML ONE (09:49)
[2018-06-05] MEDS ORDERED: Heparin 2,000 ML IV ONE (09:49)
[2018-06-05] MEDS ORDERED: Midazolam 2 MG/2 ML VIAL ONE ×2 (10:24→10:47)
[2018-06-05] MEDS ORDERED: Sodium Chloride 0.9% 1,000 ML IV SCH (11:30)
--- NOTE | 2018-06-05 11:41 | CPOSTOP ---
DATE: 06/05/2018 CARDIOVASCULAR LAB POSTPROCEDURE NOTE PHYSICIAN: Jey Phelps MD SOFTWARE SUPPORT SPECIALIST: VJ Brown. TYPE OF ANESTHESIA: Moderate conscious sedation. Total 2 mg of Versed and 100 of fentanyl given. PRE-PROCEDURE DIAGNOSES: Cardiomyopathy, decompensated congestive heart failure and end-stage renal disease. PROCEDURE PERFORMED: Left heart catheterization. FINDINGS: Normal coronaries, decreased left ventricular function, ejection fraction 35% to 40%, cardiomyopathy. FINAL DIAGNOSIS: Cardiomyopathy. POST PROCEDURE CONDITION: The patient's condition is stable. VASCULAR ACCESS SITE: Right femoral artery. CLOSURE DEVICE: Angio-Seal on right femoral artery and manual compression to venous. TOTAL RADIATION DOSE: 1703.6 milligray unit. TOTAL FLUORO TIME: 1.2 minutes. Jey Phelps MD
[2018-06-05 14:14] VITALS: BP 131/78; PULSE 88; RESP 17; TEMP 98.3; O2SAT 98
--- NOTE | 2018-06-05 14:59 | CARD ---
APPROVED REPORT Date of service: 06/05/2018 Procedure(s) performed: Left Heart Catheterization HISTORY The patient is a 32 year-old male with a history of : renal failure with dialysis, peripheral vascular disease, tobacco history() : The patient is a former smoker , hypertension , who recently admitted with CHF on dialysis, Chest pain and cardiomyopathy.. INDICATION The indication(s) include : palpitations, chest pain, dyspnea. CASE TECHNIQUE The patient was brought electively to the Cardiac Catheterization Laboratory in a fasting state and was prepped and draped in a sterile manner. The right femoral groin was infiltrated with 2% Lidocaine subcutaneous anesthesia. A sheath was inserted into the right femoral artery without difficulty. Coronary angiography was performed using coronary diagnostic catheters. The left coronary system was accessed and visualized with a Diagnostic ,6F JL4 CATH DXT 100 CM catheter. The right coronary system was accessed and visualized with a Diagnostic ,6F JR 4 CATH DXT 100 CM catheter. The left ventricle was accessed and visualized with a 6F PIGTAIL 145 CATH DXT 110 CM catheter. Left ventricular/Aortic Valve gradient assessed on pullback. Left ventriculogram was performed in CAVA[place]UGH projection. Closure device was deployed with a 6 Fr Angio-Seal without any complications. The patient tolerated the procedure well and there were no complications associated with the procedure. Vessel Analysis The patient's coronary anatomy is right dominant. The left main coronary artery is a large size vessel without stenosis. The left main trifurcates to the left anterior descending, circumflex, and ramus. The left anterior descending artery is a medium size vessel without significant stenosis. The first diagonal branch is a small size vessel without significant stenosis. The second diagonal branch is a small size vessel with intimal irregularities and without significant stenosis. The third diagonal branch is a small size vessel without significant stenosis. The circumflex artery is a medium size vessel without significant stenosis. The first obtuse marginal branch is a medium size vessel without significant stenosis. The ramus intermedius artery is a medium size vessel without significant stenosis. The right coronary artery is a medium size vessel without significant stenosis. The right posterior descending artery is a large size vessel without significant stenosis. The right posterolateral branch is a medium size vessel without significant stenosis. Left Ventricle The left ventricle is enlarged in size with moderately decreased contractility. Non-Ischemic cardiomyopathy. The left ventricular ejection fraction is estimated to be 35-40%. The left ventricular end diastolic pressure is 15-18 mmHg. There was no gradient across the aortic valve upon pullback. Conclusion Normal coronaries. Non Ischemic Cardiomyopathy. CKD on dialysis. Only 15 cc contrast used. Recommendations Aggressive Medical Therapy JOSEF/ARB and betabloker ( coreg) Monitor renal fx closely, in future may need AICD if EF% remains below 35%. Only 15 cc contrast used, so Ok to go for dialysis in am as per routine. CC;l Reza wilson/ Dago
== END 2018-06-05 16:35 | disposition home or self-care (01) ==
LOC: CATH 06:38
PROVIDERS: ATTEND Internal Medicine Cardiovascular Disease
DX: I25.10 Atherosclerotic heart disease of native coronary artery without angina pectoris (principal); I42.0 Dilated cardiomyopathy; N18.6 End stage renal disease; I13.2 Hypertensive heart and chronic kidney disease with heart failure and with stage 5 chronic kidney disease, or end stage renal disease; I50.9 Heart failure, unspecified; Z99.2 Dependence on renal dialysis; I27.20 Pulmonary hypertension, unspecified; I73.9 Peripheral vascular disease, unspecified; Z87.891 Personal history of nicotine dependence; I08.1 Rheumatic disorders of both mitral and tricuspid valves
CPT/HCPCS: 36415; 80048; 80061; 85025; 85610; 85730; 86850; 86900; 93458; 99152; 99153; C1713; C1760 ×2; C1769; C2629; J1644; J2250; J3010; J7030; J7040; Q9966